=== PATIENT | male | born 1965 | race American Indian/Alaskan Native ===

== ENCOUNTER 2016-05-31 15:53 | Inpatient (IN) | payer MEDICARE, OTHER ==
--- NOTE | 2016-05-31 16:39 | ED PDOC ---
HPI: General Adult Time Seen by Provider: 05/31/16 16:35 Chief Complaint (Nursing): Lower Extremity Problem/Injury Chief Complaint (Provider): groin pain History Per: Patient History/Exam Limitations: no limitations Severity: Severe Additional Complaint(s): 50yo male w/ Hx diabetes, lymphedema, cellulitis comes in with complaining of sudden onset severe left groin pain. Pain at home was 7/10 but is now 10/10. No fever. Patient wears compression stockings. Patient also has left leg pain. PMD: Dr. Lukas Vallecillo Past Medical History Reviewed: Historical Data, Nursing Documentation, Vital Signs Vital Signs: Last Vital Signs Temp 99.1 F 06/05/16 07:47 Pulse 71 06/05/16 07:47 Resp 20 06/05/16 07:47 BP 125/79 06/05/16 07:47 Pulse Ox 97 06/05/16 07:47 - Medical History PMH: Diabetes, HTN, Peripheral Edema (Chornic bilateral lower extremity lymphedema L>R) Denies: Atrial Fibrillation, Cardia Arrhythmia, CHF, HIV, Hypercholesterolemia, Mitral Valve Prolapse, Chronic Kidney Disease - Surgical History Surgical History: Denies: Pacemaker - Family History Family History: States: Unknown Family Hx - Living Arrangements Living Arrangements: With Family - Social History Drugs: Denies - Immunization History Hx Tetanus Toxoid Vaccination: No Hx Influenza Vaccination: No Hx Pneumococcal Vaccination: No - Home Medications Home Medications: Ambulatory Orders Medication Instructions Recorded Meclizine HCl [Antivert] 50 mg PO Q8 PRN #30 tablet 04/04/15 Triamterene/Hydrochlorothiazid 1 cap PO DAILY 04/04/15 [Triamterene-Hctz 37.5-25 mg Cp] Acetaminophen [Tylenol 325mg tab] 650 mg PO Q4 PRN tab 06/05/16 Acetaminophen [Tylenol 325mg tab] 650 mg PO Q4 PRN tab 06/05/16 Ampicillin/Sulbactam 1.5gm [Unasyn 3 gm IVPB Q6 #1 bag 06/05/16 1 gm-0.5 gm] Atorvastatin [Lipitor] 10 mg PO DAILY tab 06/05/16 Enoxaparin [Lovenox] 40 mg SC DAILY syr 06/05/16 Ketorolac [Toradol] 15 mg IVP Q4 PRN vial 06/05/16 metFORMIN [glucOPHAGE] 500 mg PO BID tab 06/05/16 - Allergies Allergies/Adverse Reactions: Allergies Allergy/AdvReac Type Severity Reaction Status Date / Time No Known Drug Allergies Allergy Verified 06/01/16 02:03 morphine AdvReac NAUSEA Verified 06/01/16 01:51 Review of Systems ROS Statement: Except As Marked, All Systems Reviewed And Found Negative Constitutional: Negative for: Fever Genitourinary Male: Positive for: Other (groin pain) Musculoskeletal: Positive for: Leg Pain Physical Exam - Reviewed Nursing Documentation Reviewed: Yes Vital Signs Reviewed: Yes - Physical Exam Appears: Positive for: Non-toxic (+moderate painful distress) Head Exam: Positive for: ATRAUMATIC, NORMAL INSPECTION, NORMOCEPHALIC Eye Exam: Positive for: EOMI, PERRL Cardiovascular/Chest: Positive for: Regular Rate, Rhythm Respiratory: Positive for: Normal Breath Sounds. Negative for: Rales, Rhonchi, Wheezing Gastrointestinal/Abdominal: Positive for: Soft. Negative for: Tenderness Male Genital Exam: Positive for: normal genitalia, other (ED scribe Tarik Nuñez present as front desk assistant) Extremity: Positive for: Other (left lower extremity with edema, erythema, tenderness to palpation) Neurologic/Psych: Positive for: Alert, Oriented (x3) - Laboratory Results Result Diagrams: 06/04/16 07:45 06/04/16 07:45 - ECG O2 Sat by Pulse Oximetry: 100 (RA) Pulse Ox Interpretation: Normal Medical Decision Making Medical Decision Makin: VBG shock panel, labs, blood culture, albuterol, morphine ordered. 2000 labs reviewed were within normal limits. Lab results explained to patient and family. Patient states he is feeling better. [address] Vallecillo who requests patient be admitted to hospitalist. Old charts reviewed, patient previously admitted by family practice. Case discussed with family practice resident who refused admission. 1837 Case discussed with hospitalist who recommends placing patient under medicine induction coordination engineer. [address] Buckner who accepts patient for admission on med/surg. Podiatry paged. Disposition - Clinical Impression Clinical Impression: Cellulitis, Chronic acquired lymphedema - Patient ED Disposition Is Patient to be Admitted: Yes - Disposition Disposition Time: 20:42 Condition: FAIR - Pt Status Changed To: Hospital Disposition Of: Inpatient - Admit Certification Admit to Inpatient:: After my assessment, the patient will require hospitalization for at least two midnights. This is because of the severity of symptoms shown, intensity of services needed, and/or the medical risk in this patient being treated as an outpatient. - POA Present On Arrival: None Additional Comments - Additional Comments Additional Comments: Scribe Attestation: Documented by Tarik Nuñez acting as a scribe for Zulema Driscoll MD. Scribe Attestation: All medical record entries made by the Scribe were at my direction and personally dictated by me. I have reviewed the chart and agree that the record accurately reflects my personal performance of the history, physical exam, medical decision making, and the department course for this patient. I have also personally directed, reviewed, and agree with the discharge instructions and disposition.
[2016-05-31] MEDS ORDERED: Albuterol 0.083% Inhal Sol (2.5 mg/3 mL) UD INH STA (16:46)
[2016-05-31] MEDS ORDERED: Piperacillin/Tazobact 4.5 GM in Sodium Chloride 0.9% 100 ML IVPB ONE (17:30)
[2016-05-31] MEDS ORDERED: Albuterol 0.083% Inhal Sol (2.5 mg/3 mL) UD ONE (17:55)
[2016-05-31 18:25] LABS: BASO % 0.2 % (0.0-2.0); EOS % 0.1 % (0.0-4.0); HEMATOCRIT 43.6 % (35.0-51.0); LYMPH # 0.5 K/uL (1.0-4.3); LYMPH % 10.6 % (20.0-40.0); MEAN CORPUSCULAR HGB CONC 34.9 g/dL (33.0-37.0); MEAN PLATELET VOLUME 8.7 fl (7.2-11.7); MONO # 0.1 K/uL (0.0-0.8); MONO % 1.1 % (0.0-10.0); NEUT # 4.4 K/uL (1.8-7.0); NRBC % 0.2 % (0.0-0.0); RED CELL DISTRIBUTION WIDTH 13.4 % (11.5-14.5)
[2016-05-31 18:39] LABS: ALB/GLOB RATIO 1.1 (1.0-2.1); ALKALINE PHOSPHATASE 40 U/L (38-126); ALT/SGPT 25 U/L (21-72); AST/SGOT 34 U/L (17-59); BILIRUBIN,TOTAL 1.3 mg/dl (0.2-1.3); BLOOD UREA NITROGEN 18 mg/dl (9-20); CALCIUM 9.6 mg/dL (8.4-10.2); CARBON DIOXIDE 23 mmol/L (22-30); CHLORIDE 100 mmol/L (98-107); GFR AFRICAN-AMERICAN > 60; GLUCOSE,RANDOM 100 mg/dL (75-110); POTASSIUM 3.7 MMOL/L (3.6-5.0); SODIUM 139 mmol/l (132-148); TOTAL PROTEIN 7.7 G/DL (6.3-8.2)
[2016-05-31 18:52] LABS: VENOUS BLOOD GAS BASE EXCESS 5.9 mmol/L (0.0-2.0); VENOUS BLOOD GAS PCO2 23 mmHg (40-60); VENOUS BLOOD PH 7.65 (7.32-7.43)
[2016-05-31 19:10] LABS: PARTIAL THROMBOPLASTIN TIME 24.4 SECONDS (23.3-32.5)
--- NOTE | 2016-05-31 19:55 | US ---
EXAM: US Duplex Left Lower Extremity Veins CLINICAL HISTORY: 50 years old, male; Signs and symptoms; Swelling of limb; Lower extremity, left; Additional info: Redness, swelling TECHNIQUE: Real-time ultrasound scan of the veins of the left lower extremity with color Doppler flow, spectral waveform analysis and compression. EXAM DATE/TIME: 05/31/2016 5:04 PM COMPARISON: No relevant prior studies available. FINDINGS: Normal-appearing compressibility, flow and augmentation response are seen in the left common femoral, femoral and popliteal veins. Flow is seen in the posterior tibial veins, in the left calf. IMPRESSION: No evidence of deep venous thrombosis in the left leg.
[2016-06-01] MEDS: Enoxaparin 40 mg Syringe SC SCH (08:18)
[2016-06-01] MEDS: hydroCHLOROthiazide-Triamterene 25 mg-37.5 mg Cap UD PO SCH (08:18)
[2016-06-01] MEDS ORDERED: Pneumococcal 23-Valent Vaccine IM ONE (09:00)
[2016-06-01] MEDS ORDERED: Clindamycin 300 MG in Sodium Chloride 0.9% 100 ML IVPB SCH (09:00)
[2016-06-01] MEDS: Piperacillin/Tazobact 4.5 GM in Sodium Chloride 0.9% 100 ML IVPB SCH ×2 (10:19→16:02)
--- NOTE | 2016-06-01 10:38 | HP ---
ADMITTING HISTORY AND PHYSICAL HISTORY OF PRESENT ILLNESS: The patient is a 50-year-old male who was admitted via the [facility] because of sudden onset of pain in the left lower extremity with redness and warmth associated with fever and chills. He was brought to the Emergency Room, where he was admitted for severe cellulitis of the left lower extremity. He has a history of chronic lymphedema of both lower extremities - lef t worse than right, and has been admitted in the past with cellulitis of lower extremities. He also has a history of diabetes mellitus, severe peripheral vascular disease. FAMILY HISTORY: Noncontributory. SOCIAL HISTORY: He does not smoke or drink. REVIEW OF SYSTEMS: Remarkable for chronic swelling of lower extremities. PHYSICAL EXAMINATION: GENERAL: The patient is alert, oriented to ____ in moderate distress because of pain. VITAL SIGNS: Remarkable for blood pressure of 122/75, pulse of 93, respiratory rate 20. He is febri le with a temperature of 100 degrees Fahrenheit. SKIN: Shows fair turgor. HEENT: Pupils are equal and react to light and accommodation. Mouth shows fair hygiene. NECK: JVP flat. LUNGS: Clear. HEART: Regular. No murmurs or gallops. ABDOMEN: Soft, nontender. No organomegaly. GENITALIA: Normal. RECTAL: Normal. EXTREMITIES: Chronic bilateral lymphedema of lower extremities with severe cellulitis of left lower extremity, warmth, and tenderness. CENTRAL NERVOUS SYSTEM: Grossly intact. LABORATORY DATA: Remarkable for WBC of 5.0, hemoglobin 15.2, platelet count of 188,000. Sodium 139, potassium 3.7, BUN of 18, creatinine 1.0. Ultrasound of extremities is remarkable for no evidence of deep venous thrombosis of left leg. IMPRESSION: Severe cellulitis of left lower extremity with chronic lymphedema, sepsis secondary to c ellulitis and lymphedema of lower extremities, diabetes mellitus, hypertension by history. PLAN: Continue IV antibiotics, IV hydration. Infectious disease evaluation for appropriate antibiot ic therapy. Analgesics will be given for pain. Edu Buckner MD cc: 62 TT: 06/01/2016 10:37:29 jn
--- NOTE | 2016-06-01 11:17 | CP.PCM.CON ---
History of Present Illness - History of Present Illness History of Present Illness: 50yo male w/ Hx diabetes, lymphedema, cellulitis comes in with complaining of sudden onset severe left groin pain. Pain at home was 7/10 but is now 10/10. No fever. Patient wears compression stockings. Patient also has left leg pain. left foot is swollen warm and painful IV antibiotics in progress - Medical History PMH: Diabetes, HTN, Peripheral Edema (Chornic bilateral lower extremity lymphedema L>R) Denies: Atrial Fibrillation, Cardia Arrhythmia, CHF, HIV, Hypercholesterolemia, Mitral Valve Prolapse, Chronic Kidney Disease Review of Systems - Constitutional Constitutional: As Per HPI - EENT Eyes: absent: As Per HPI, Blind Spots, Blurred Vision, Change in Vision, Decreased Night Vision, Diplopia, Discharge, Dry Eye, Exophthalmos, Floaters, Irritation, Itchy Eyes, Loss of Peripheral Vision, Pain, Photophobia, Requires Corrective Lenses, Sees Flashes, Spots in Vision, Tunnel Vision, Other Visual Disturbances, Loss of Vision, Other Ears: absent: As Per HPI, Decreased Hearing, Ear Discharge, Ear Pain, Tinnitus, Abnormal Hearing, Disequilibrium, Dizziness, Other Nose/Mouth/Throat: absent: As Per HPI, Epistaxis, Nasal Congestion, Nasal Discharge, Nasal Obstruction, Nasal Trauma, Nose Pain, Post Nasal Drip, Sinus Pain, Sinus Pressure, Bleeding Gums, Change in Voice, Dental Pain, Dry Mouth, Dysphagia, Halitosis, Hoarsness, Lip Swelling, Mouth Lesions, Mouth Pain, Odynophagia, Sore Throat, Throat Swelling, Tongue Swelling, Facial Pain, Neck Pain, Neck Mass, Other - Cardiovascular Cardiovascular: absent: As Per HPI, Acrocyanosis, Chest Pain, Chest Pain at Rest , Chest Pain with Activity, Claudication, Diaphoresis, Dyspnea, Dyspnea on Exertion, Edema, Irregular Heart Rhythm, Pain Radiating to Arm/Neck/Jaw, Leg Edema, Leg Ulcers, Lightheadedness, Orthopnea, Palpitations, Paroxysmal Nocturnal Dyspnea, Pedal Edema, Radiating Pain, Rapid Heart Rate, Slow Heart Rate, Syncope, Other - Respiratory Respiratory: absent: As Per HPI, Cough, Dyspnea, Hemoptysis, Dyspnea on Exertion , Wheezing, Snoring, Stridor, Pain on Inspiration, Chest Congestion, Excessive Mucous Production, Change in Mucous Color, Pain with Coughing, Other - Gastrointestinal Gastrointestinal: absent: As Per HPI, Abdominal Pain, Belching, Bloating, Change in Bowel Habits, Change in Stool Character, Coffee Ground Emesis, Constipation, Cramping, Diarrhea, Dyspepsia, Dysphagia, Early Satiety, Excessive Flatus, Fecal Incontinence, Heartburn, Hematemesis, Hematochezia, Loose Stools, Melena, Nausea, Odynophagia, Temesmus, Vomiting, Other - Genitourinary Genitourinary: absent: As Per HPI, Change in Urinary Stream, Difficulty Urinating, Dysuria, Flank Pain, Hematuria, Pyuria, Nocturia, Urinary Incontinence, Urinary Frequency, Urinary Hesitance, Urinary Urgency, Voiding Freq/Small Amts, Freq UTI, Hx Renal/Bladder Calculi, Hx /Renal Surgery, Bladder Distension, Other - Musculoskeletal Musculoskeletal: As Per HPI - Integumentary Integumentary: As Per HPI - Neurological Neurological: As Per HPI - Psychiatric Psychiatric: absent: As Per HPI, Abnormal Sleep Pattern, Anhedonia, Anxiety, Auditory Hallucinations, Behavioral Changes, Change in Appetite, Change in Libido, Confusion, Depression, Difficulty Concentrating, Hallucinations, Homicidal Ideation, Hopelessness, Irritability, Memory Loss, Mood Swings, Panic Attacks, Paranoia, Suicidal Ideation, Visual Hallucinations, Tactile Hallucinations, Other - Endocrine Endocrine: absent: As Per HPI, Change in Body Appearance, Change in Libido, Cold Intolorance, Deepening of Voice, Excessive Sweating, Fatigue, Flushing, Heat Intolorance, Increase in Ring/Shoe/Hat Size, Palpitations, Polydipsia, Polyphagia, Polyuria, Other - Hematologic/Lymphatic Hematologic: absent: As Per HPI, Easy Bleeding, Easy Bruising, Lymphadenopathy, Other Past Patient History - Tetanus Immunizations Tetanus Immunization: Unknown - Past Medical History & Family History Past Medical History?: Yes - Past Social History Smoking Status: Never Smoked - CARDIAC Hx Cardiac Disorders: Yes - PULMONARY Hx Respiratory Disorders: No - NEUROLOGICAL Hx Neurological Disorder: No - HEENT Hx HEENT Problems: No - RENAL Hx Chronic Kidney Disease: No - ENDOCRINE/METABOLIC Hx Endocrine Disorders: Yes - HEMATOLOGICAL/ONCOLOGICAL Hx Blood Disorders: No - INTEGUMENTARY Hx Dermatological Problems: No - MUSCULOSKELETAL/RHEUMATOLOGICAL Hx Falls: No - GASTROINTESTINAL Hx Gastrointestinal Disorders: No - GENITOURINARY/GYNECOLOGICAL Hx Genitourinary Disorders: No - PSYCHIATRIC Hx Substance Use: No - SURGICAL HISTORY Hx Surgeries: No - ANESTHESIA Hx Anesthesia: No Hx Anesthesia Reactions: No Meds Allergies/Adverse Reactions: Allergies Allergy/AdvReac Type Severity Reaction Status Date / Time No Known Drug Allergies Allergy Verified 06/01/16 02:03 morphine AdvReac NAUSEA Verified 06/01/16 01:51 - Medications Medications: Current Medications Atorvastatin Calcium (Lipitor) 10 mg PO DAILY [facility] Last Admin: 06/01/16 08:19 Dose: 10 mg Enoxaparin Sodium (Lovenox) 40 mg SC DAILY [facility] PRN Reason: Protocol Last Admin: 06/01/16 08:18 Dose: 40 mg Piperacillin Sod/Tazobactam (Sod 4.5 gm/ Sodium Chloride) 100 mls @ 100 mls/hr IVPB Q8 [facility] Last Admin: 06/01/16 10:19 Dose: 100 mls/hr Clindamycin Phosphate 300 mg/ (Sodium Chloride) 102 mls @ 102 mls/hr IVPB Q12 [facility] Last Admin: 06/01/16 10:19 Dose: 102 mls/hr Ketorolac Tromethamine (Toradol) 15 mg IVP Q4 [facility] Last Admin: 06/01/16 10:20 Dose: Not Given Meclizine HCl (Antivert) 50 mg PO Q8 PRN PRN Reason: Other Metformin HCl (Glucophage) 500 mg PO BID [facility] Last Admin: 06/01/16 08:18 Dose: 500 mg Triamterene/HCTZ (Dyazide 25 Mg-37.5 Mg) 1 cap PO DAILY [facility] Last Admin: 06/01/16 08:18 Dose: 1 cap Physical Exam - Constitutional Appears: Non-toxic - Head Exam Head Exam: ATRAUMATIC, NORMAL INSPECTION, NORMOCEPHALIC - Eye Exam Eye Exam: EOMI, PERRL. absent: Scleral icterus - ENT Exam ENT Exam: Mucous Membranes Dry, Normal External Ear Exam - Neck Exam Neck exam: Negative for: Lymphadenopathy, Thyromegaly - Respiratory Exam Respiratory Exam: Decreased Breath Sounds, Clear to Auscultation Bilateral - Cardiovascular Exam Cardiovascular Exam: REGULAR RHYTHM, +S1, +S2 - GI/Abdominal Exam GI & Abdominal Exam: Diminished Bowel Sounds, Soft. absent: Tenderness - Rectal Exam Rectal Exam: Deferred - Exam Exam: NORMAL INSPECTION - Extremities Exam Extremities exam: Positive for: pedal edema, tenderness, pedal pulses present. Negative for: calf tenderness - Back Exam Back exam: absent: CVA tenderness (L), CVA tenderness (R), paraspinal tenderness - Neurological Exam Neurological exam: Alert, CN II-XII Intact, Oriented x3, Reflexes Normal - Psychiatric Exam Psychiatric exam: Normal Mood - Skin Skin Exam: Dry, Intact Results - Vital Signs Recent Vital Signs: Last Vital Signs Temp 100 F H 06/01/16 08:04 Pulse 93 H 06/01/16 08:04 Resp 20 06/01/16 08:04 BP 122/75 06/01/16 08:04 Pulse Ox 100 06/01/16 08:04 - Labs Result Diagrams: 05/31/16 18:10 05/31/16 18:10 Assessment & Plan (1) Cellulitis and abscess of foot Status: Acute (2) Cellulitis and abscess of foot Status: Acute (3) Chronic acquired lymphedema Status: Acute - Assessment and Plan (Free Text) Assessment: severe exac chronic lymphedema r/o abscess cellulitis r/o sepsis r/o OM consider MRI/ Bone scan and vasvcular studies cont IV antibiotics
[2016-06-01] MEDS: Clindamycin 600 MG in Sodium Chloride 0.9% 100 ML IVPB SCH (16:02)
[2016-06-02] MEDS: Clindamycin 600 MG in Sodium Chloride 0.9% 100 ML IVPB SCH ×3 (00:12→16:45)
[2016-06-02] MEDS: Piperacillin/Tazobact 4.5 GM in Sodium Chloride 0.9% 100 ML IVPB SCH ×3 (00:12→16:44)
[2016-06-02 06:50] LABS: BASO % 0.1 % (0.0-2.0); LYMPH # 0.6 K/uL (1.0-4.3); LYMPH % 4.6 % (20.0-40.0); MEAN CELL VOLUME 86.5 fl (80.0-94.0); MEAN CORPUSCULAR HEMOGLOBIN 29.7 pg (27.0-31.0); MEAN CORPUSCULAR HGB CONC 34.4 g/dL (33.0-37.0); MEAN PLATELET VOLUME 8.6 fl (7.2-11.7); MONO # 0.3 K/uL (0.0-0.8); MONO % 2.3 % (0.0-10.0); NEUT # 11.8 K/uL (1.8-7.0); PLATELET COUNT 137 K/uL (130-400); RED CELL DISTRIBUTION WIDTH 13.8 % (11.5-14.5); WHITE BLOOD COUNT 12.7 K/uL (4.8-10.8)
[2016-06-02] MEDS: hydroCHLOROthiazide-Triamterene 25 mg-37.5 mg Cap UD PO SCH (08:40)
[2016-06-02] MEDS: Enoxaparin 40 mg Syringe SC SCH (08:41)
--- NOTE | 2016-06-02 08:45 | CP.PCM.PN ---
Subjective - Date & Time of Evaluation Date of Evaluation: 06/02/16 Time of Evaluation: 08:46 - Subjective Subjective: L LEG PAIN LESS TODAY STILL FEBRILE Objective - Vital Signs/Intake and Output Vital Signs (last 24 hours): Temp Pulse Resp BP Pulse Ox 99.9 F H 99 H 20 111/77 96 06/02/16 07:32 06/02/16 07:32 06/02/16 07:32 06/02/16 07:32 06/02/16 07:32 - Medications Medications: Current Medications Acetaminophen (Tylenol 325mg Tab) 650 mg PO Q4 PRN PRN Reason: Fever >100.4 F Last Admin: 06/01/16 16:54 Dose: 650 mg Acetaminophen (Tylenol 325mg Tab) 650 mg PO Q4 PRN PRN Reason: Pain, Mild (1-3) Atorvastatin Calcium (Lipitor) 10 mg PO DAILY [facility] Last Admin: 06/02/16 08:40 Dose: 10 mg Enoxaparin Sodium (Lovenox) 40 mg SC DAILY [facility] PRN Reason: Protocol Last Admin: 06/02/16 08:41 Dose: 40 mg Piperacillin Sod/Tazobactam (Sod 4.5 gm/ Sodium Chloride) 100 mls @ 100 mls/hr IVPB Q8 [facility] Last Admin: 06/02/16 08:41 Dose: 100 mls/hr Clindamycin Phosphate 600 mg/ (Sodium Chloride) 104 mls @ 104 mls/hr IVPB Q8 [facility] Last Admin: 06/02/16 08:39 Dose: 104 mls/hr Ketorolac Tromethamine (Toradol) 15 mg IVP Q4 PRN PRN Reason: Pain, moderate (4-7) Meclizine HCl (Antivert) 50 mg PO Q8 PRN PRN Reason: Other Metformin HCl (Glucophage) 500 mg PO BID [facility] Last Admin: 06/02/16 08:40 Dose: 500 mg Triamterene/HCTZ (Dyazide 25 Mg-37.5 Mg) 1 cap PO DAILY [facility] Last Admin: 06/02/16 08:40 Dose: 1 cap - Labs Labs: 06/02/16 05:55 PT 10.4 SECONDS (9.6-11.2) 05/31/16 18:20 INR 1.00 (0.92-1.08) 05/31/16 18:20 APTT 24.4 SECONDS (23.3-32.5) 05/31/16 18:20 - Constitutional Appears: Chronically Ill - Head Exam Head Exam: ATRAUMATIC, NORMAL INSPECTION, NORMOCEPHALIC - Eye Exam Eye Exam: EOMI, Normal appearance, PERRL Pupil Exam: NORMAL ACCOMODATION, PERRL - ENT Exam ENT Exam: Mucous Membranes Moist, Normal Exam - Neck Exam Neck Exam: Full ROM, Normal Inspection. absent: Lymphadenopathy - Respiratory Exam Respiratory Exam: Clear to Ausculation Bilateral, NORMAL BREATHING PATTERN - Cardiovascular Exam Cardiovascular Exam: REGULAR RHYTHM, +S1, +S2. absent: Murmur - GI/Abdominal Exam GI & Abdominal Exam: Soft, Normal Bowel Sounds. absent: Tenderness - Rectal Exam Rectal Exam: NORMAL INSPECTION - Extremities Exam Extremities Exam: Full ROM, Normal Capillary Refill, Normal Inspection, Tenderness. absent: Joint Swelling, Pedal Edema Additional comments: BILATERAL LYMPHEDEMA OF LEGS WITH CELLULITIS OF L LEG - Back Exam Back Exam: NORMAL INSPECTION - Neurological Exam Neurological Exam: Alert, Awake, CN II-XII Intact, Normal Gait, Oriented x3 - Psychiatric Exam Psychiatric exam: Normal Affect, Normal Mood - Skin Skin Exam: Dry, Intact, Normal Color, Warm Assessment and Plan - Assessment and Plan (Free Text) Assessment: CELLULITIS OF L LEG LYMPHEDEMA OF LEGS STAPH SEPSIS DM Plan: CONTINUE IV ANTIBIOTIC RX
--- NOTE | 2016-06-02 12:29 | RAD ---
HISTORY: Fevers, + blood cultures COMPARISON: 01/23/2013 TECHNIQUE: Chest PA and lateral FINDINGS: LUNGS: No active pulmonary disease. PLEURA: No significant pleural effusion identified. No pneumothorax apparent. CARDIOVASCULAR: Normal. OSSEOUS STRUCTURES: No significant abnormalities. VISUALIZED UPPER ABDOMEN: Normal. OTHER FINDINGS: None. IMPRESSION: No active disease.
[2016-06-02 13:55] LABS: NEUTROPHIL 79 % (42-75); TOTAL CELLS COUNTED 100
--- NOTE | 2016-06-02 19:02 | CP.PCM.PN ---
Subjective - Date & Time of Evaluation Date of Evaluation: 06/02/16 Time of Evaluation: 09:00 - Subjective Subjective: fever persists leg swelling +++ consider CT or MRI left leg consider echo/[place] zyvox added Objective - Vital Signs/Intake and Output Vital Signs (last 24 hours): Temp Pulse Resp BP Pulse Ox 99.6 F 96 H 18 108/63 97 06/02/16 18:50 06/02/16 16:45 06/02/16 16:45 06/02/16 16:45 06/02/16 16:45 - Medications Medications: Current Medications Acetaminophen (Tylenol 325mg Tab) 650 mg PO Q4 PRN PRN Reason: Fever >100.4 F Last Admin: 06/02/16 16:44 Dose: 650 mg Acetaminophen (Tylenol 325mg Tab) 650 mg PO Q4 PRN PRN Reason: Pain, Mild (1-3) Atorvastatin Calcium (Lipitor) 10 mg PO DAILY [facility] Last Admin: 06/02/16 08:40 Dose: 10 mg Enoxaparin Sodium (Lovenox) 40 mg SC DAILY [facility] PRN Reason: Protocol Last Admin: 06/02/16 08:41 Dose: 40 mg Piperacillin Sod/Tazobactam (Sod 4.5 gm/ Sodium Chloride) 100 mls @ 100 mls/hr IVPB Q8 [facility] Last Admin: 06/02/16 16:44 Dose: 100 mls/hr Ketorolac Tromethamine (Toradol) 15 mg IVP Q4 PRN PRN Reason: Pain, moderate (4-7) Meclizine HCl (Antivert) 50 mg PO Q8 PRN PRN Reason: Other Metformin HCl (Glucophage) 500 mg PO BID [facility] Last Admin: 06/02/16 16:44 Dose: 500 mg Triamterene/HCTZ (Dyazide 25 Mg-37.5 Mg) 1 cap PO DAILY [facility] Last Admin: 06/02/16 08:40 Dose: 1 cap - Labs Labs: 06/02/16 05:55 PT 10.4 SECONDS (9.6-11.2) 05/31/16 18:20 INR 1.00 (0.92-1.08) 05/31/16 18:20 APTT 24.4 SECONDS (23.3-32.5) 05/31/16 18:20 - Constitutional Appears: Toxic - Eye Exam Eye Exam: absent: Scleral icterus - ENT Exam ENT Exam: Mucous Membranes Dry - Neck Exam Neck Exam: absent: Lymphadenopathy, Thyromegaly - Respiratory Exam Respiratory Exam: Decreased Breath Sounds, Clear to Ausculation Bilateral - Cardiovascular Exam Cardiovascular Exam: REGULAR RHYTHM, +S1, +S2 - GI/Abdominal Exam GI & Abdominal Exam: Distended, Soft. absent: Tenderness - Rectal Exam Rectal Exam: Deferred - Extremities Exam Extremities Exam: Calf Tenderness, Pedal Edema, Tenderness. absent: Normal Inspection - Back Exam Back Exam: absent: CVA tenderness (L), CVA tenderness (R) - Neurological Exam Neurological Exam: Alert, Awake, Oriented x3 Assessment and Plan (1) Cellulitis and abscess of foot Status: Acute (2) Cellulitis and abscess of foot Status: Acute (3) Chronic acquired lymphedema Status: Acute
[2016-06-02] MEDS: Linezolid 600 mg in D5W 300 ml 600 MG/300 ML BAG IVPB SCH (21:13)
[2016-06-03] MEDS: Piperacillin/Tazobact 4.5 GM in Sodium Chloride 0.9% 100 ML IVPB SCH ×3 (00:38→17:28)
[2016-06-03 07:47] LABS: BASO % 0.1 % (0.0-2.0); HEMATOCRIT 37.7 % (35.0-51.0); LYMPH # 0.7 K/uL (1.0-4.3); LYMPH % 4.6 % (20.0-40.0); MEAN CELL VOLUME 86.2 fl (80.0-94.0); MEAN CORPUSCULAR HEMOGLOBIN 29.7 pg (27.0-31.0); MEAN CORPUSCULAR HGB CONC 34.4 g/dL (33.0-37.0); MEAN PLATELET VOLUME 8.5 fl (7.2-11.7); MONO # 0.5 K/uL (0.0-0.8); MONO % 3.4 % (0.0-10.0); NEUT # 13.4 K/uL (1.8-7.0); NEUT % 91.9 % (50.0-75.0); PLATELET COUNT 146 K/uL (130-400); RED CELL DISTRIBUTION WIDTH 13.8 % (11.5-14.5); WHITE BLOOD COUNT 14.6 K/uL (4.8-10.8)
[2016-06-03 08:07] LABS: ALB/GLOB RATIO 0.9 (1.0-2.1); BILIRUBIN,TOTAL 1.7 mg/dl (0.2-1.3); CALCIUM 8.7 mg/dL (8.4-10.2); POTASSIUM 3.3 MMOL/L (3.6-5.0); TOTAL PROTEIN 6.9 G/DL (6.3-8.2)
--- NOTE | 2016-06-03 08:29 | CARD ---
APPROVED REPORT EKG Measurement Heart [id number] <Conclusion> Sinus rhythm with premature atrial complexes Otherwise normal ECG
[2016-06-03] MEDS: hydroCHLOROthiazide-Triamterene 25 mg-37.5 mg Cap UD PO SCH (09:15)
[2016-06-03] MEDS: Enoxaparin 40 mg Syringe SC SCH (09:15)
[2016-06-03] MEDS: Linezolid 600 mg in D5W 300 ml 600 MG/300 ML BAG IVPB SCH ×2 (09:16→21:28)
--- NOTE | 2016-06-03 09:21 | CP.PCM.PN ---
Subjective - Date & Time of Evaluation Date of Evaluation: 06/03/16 Time of Evaluation: 09:24 - Subjective Subjective: SWELLING OF L LEG IMPROVING STILL HAS PAIN IN L LEG Objective - Vital Signs/Intake and Output Vital Signs (last 24 hours): Temp Pulse Resp BP Pulse Ox 99.1 F 71 20 101/67 98 06/03/16 07:22 06/03/16 07:22 06/03/16 07:22 06/03/16 07:22 06/03/16 07:22 - Medications Medications: Current Medications Acetaminophen (Tylenol 325mg Tab) 650 mg PO Q4 PRN PRN Reason: Fever >100.4 F Last Admin: 06/02/16 16:44 Dose: 650 mg Acetaminophen (Tylenol 325mg Tab) 650 mg PO Q4 PRN PRN Reason: Pain, Mild (1-3) Atorvastatin Calcium (Lipitor) 10 mg PO DAILY [facility] Last Admin: 06/03/16 09:15 Dose: 10 mg Enoxaparin Sodium (Lovenox) 40 mg SC DAILY [facility] PRN Reason: Protocol Last Admin: 06/03/16 09:15 Dose: 40 mg Piperacillin Sod/Tazobactam (Sod 4.5 gm/ Sodium Chloride) 100 mls @ 100 mls/hr IVPB Q8 [facility] Last Admin: 06/03/16 09:16 Dose: 100 mls/hr Linezolid (Zyvox 600mg/300ml D5w) 600 mg in 300 mls @ 300 mls/hr IVPB Q12 [facility] Last Admin: 06/03/16 09:16 Dose: 300 mls/hr Ketorolac Tromethamine (Toradol) 15 mg IVP Q4 PRN PRN Reason: Pain, moderate (4-7) Meclizine HCl (Antivert) 50 mg PO Q8 PRN PRN Reason: Other Metformin HCl (Glucophage) 500 mg PO BID [facility] Last Admin: 06/03/16 09:15 Dose: 500 mg Triamterene/HCTZ (Dyazide 25 Mg-37.5 Mg) 1 cap PO DAILY [facility] Last Admin: 06/03/16 09:15 Dose: 1 cap - Labs Labs: 06/03/16 06:20 06/03/16 06:20 PT 10.4 SECONDS (9.6-11.2) 05/31/16 18:20 INR 1.00 (0.92-1.08) 05/31/16 18:20 APTT 24.4 SECONDS (23.3-32.5) 05/31/16 18:20 - Constitutional Appears: In Acute Distress - Head Exam Head Exam: ATRAUMATIC, NORMAL INSPECTION, NORMOCEPHALIC - Eye Exam Eye Exam: EOMI, Normal appearance, PERRL Pupil Exam: NORMAL ACCOMODATION, PERRL - ENT Exam ENT Exam: Mucous Membranes Moist, Normal Exam - Neck Exam Neck Exam: Full ROM, Normal Inspection. absent: Lymphadenopathy - Respiratory Exam Respiratory Exam: Clear to Ausculation Bilateral, NORMAL BREATHING PATTERN - Cardiovascular Exam Cardiovascular Exam: REGULAR RHYTHM, +S1, +S2. absent: Murmur - GI/Abdominal Exam GI & Abdominal Exam: Soft, Normal Bowel Sounds. absent: Tenderness - Rectal Exam Rectal Exam: NORMAL INSPECTION - Extremities Exam Extremities Exam: Full ROM, Normal Capillary Refill, Normal Inspection, Pedal Edema, Tenderness. absent: Joint Swelling Additional comments: CELLULITIS OF L LEG - Back Exam Back Exam: NORMAL INSPECTION - Neurological Exam Neurological Exam: Alert, Awake, CN II-XII Intact, Normal Gait, Oriented x3 - Psychiatric Exam Psychiatric exam: Normal Affect, Normal Mood - Skin Skin Exam: Dry, Intact, Normal Color, Warm Assessment and Plan - Assessment and Plan (Free Text) Assessment: SEPSIS CELLULITIS OF L LEG BILATERAL LYMPEDEDMA O9F LEGS DM HTN Plan: CONTINUE ANTIBIOTIC RX TRANSFER TO TCU
[2016-06-03 09:26] LABS: NEUTROPHIL 87 % (42-75); TOTAL CELLS COUNTED 100
[2016-06-03] MEDS: Sodium Chloride 0.45% 1,000 ML IV SCH (10:30)
[2016-06-03] MEDS ORDERED: Potassium Chloride 20 mEq ER Tab PO ONE (10:34)
--- NOTE | 2016-06-03 14:50 | CARD ---
APPROVED REPORT EXAM: Two-dimensional and M-mode echocardiogram with Doppler and color Doppler. Other Information Quality : GoodRhythm : NSR INDICATION Sepsis,Fever 2D DIMENSIONS IVSd1.07 (0.7-1.1cm)LVDd4.86 (3.9-5.9cm) LVOT Diameter2.87 (1.8-2.4cm)PWd0.86 (0.7-1.1cm) IVSs1.55 (0.8-1.2cm)LVDs3.06 (2.5-4.0cm) FS (%) 37.0 %PWs1.74 (0.8-1.2cm) M-Mode DIMENSIONS Left Atrium (MM)4.53 (2.5-4.0cm)IVSd1.12 (0.7-1.1cm) Aortic Root3.35 (2.2-3.7cm)LVDd6.15 (4.0-5.6cm) Aortic Cusp Exc.2.24 (1.5-2.0cm)PWd1.09 (0.7-1.1cm) IVSs1.79 cmFS (%) 38 % LVDs3.79 (2.0-3.8cm)PWs1.38 cm Mitral Valve MV E Vtivwkob84.4cm/sMV DECEL [id number] A Pqrrjwkt29.3cm/s MV KDC39xyR/A ratio0.8MVA (PHT)3.30cm2 TDI Lateral E' Peak V13.20cm/sMedial E' Peak V9.45cm/sE/Lateral E'3.7 E/Medial E'5.2 Pulmonary Valve PV Peak Lnwcgjnb775.7cm/s Tricuspid Valve TR Peak Amjeclny814cn/sRAP MXRGXKDM22biBzUU Peak Gr.22mmHg KHXF95jcLw LEFT VENTRICLE The left ventricle is normal size. There is normal left ventricular wall thickness. Left ventricle systolic function is normal. The Ejection Fraction is 60-65%. There is normal LV segmental wall motion. Transmitral Doppler flow pattern is Grade I-abnormal relaxation pattern. RIGHT VENTRICLE The right ventricle is normal size. There is normal right ventricular wall thickness. The right ventricular systolic function is normal. ATRIA The left atrium size is normal. The right atrium size is normal. AORTIC VALVE The aortic valve is normal in structure and function. No aortic regurgitation is present. There is no aortic valvular stenosis. MITRAL VALVE The mitral valve is normal in structure. There is no evidence of mitral valve prolapse. There is no mitral valve stenosis. Mitral regurgitation is mild. TRICUSPID VALVE The tricuspid valve is normal in structure. There is trace to mild tricuspid regurgitation. Right ventricular systolic pressure is estimated at 33 mmHg. There is mild pulmonary hypertension. PULMONIC VALVE The pulmonary valve is normal in structure and function. There is no pulmonic valvular regurgitation. GREAT VESSELS The aortic root is normal in size. The IVC is dilated. The IVC collapses <50% with inspiration. PERICARDIAL EFFUSION The pericardium appears normal. <Conclusion> The left ventricle is normal size. There is normal left ventricular wall thickness. There is normal LV segmental wall motion. Left ventricle systolic function is normal. The Ejection Fraction is 60-65%. Transmitral Doppler flow pattern is Grade I-abnormal relaxation pattern. The IVC is dilated. The IVC collapses <50% with inspiration. No vegetations seen on this TTE.
--- NOTE | 2016-06-03 19:08 | CP.PCM.PN ---
Subjective - Date & Time of Evaluation Date of Evaluation: 06/03/16 Time of Evaluation: 10:00 - Subjective Subjective: BLOOD C/S + STREP GRP B IWILL NEED MIN 14 DAYS IV RX Objective - Vital Signs/Intake and Output Vital Signs (last 24 hours): Temp Pulse Resp BP Pulse Ox 98.8 F 91 H 20 130/81 99 06/03/16 15:46 06/03/16 15:46 06/03/16 15:46 06/03/16 15:46 06/03/16 15:46 - Medications Medications: Current Medications Acetaminophen (Tylenol 325mg Tab) 650 mg PO Q4 PRN PRN Reason: Fever >100.4 F Last Admin: 06/02/16 16:44 Dose: 650 mg Acetaminophen (Tylenol 325mg Tab) 650 mg PO Q4 PRN PRN Reason: Pain, Mild (1-3) Atorvastatin Calcium (Lipitor) 10 mg PO DAILY [facility] Last Admin: 06/03/16 09:15 Dose: 10 mg Enoxaparin Sodium (Lovenox) 40 mg SC DAILY [facility] PRN Reason: Protocol Last Admin: 06/03/16 09:15 Dose: 40 mg Piperacillin Sod/Tazobactam (Sod 4.5 gm/ Sodium Chloride) 100 mls @ 100 mls/hr IVPB Q8 [facility] Last Admin: 06/03/16 17:28 Dose: 100 mls/hr Linezolid (Zyvox 600mg/300ml D5w) 600 mg in 300 mls @ 300 mls/hr IVPB Q12 [facility] Last Admin: 06/03/16 09:16 Dose: 300 mls/hr Sodium Chloride (Sodium Chloride 0.45%) 1,000 mls @ 75 mls/hr IV .[id number] [facility] Stop: 06/04/16 10:38 Last Admin: 06/03/16 10:30 Dose: 75 mls/hr Ketorolac Tromethamine (Toradol) 15 mg IVP Q4 PRN PRN Reason: Pain, moderate (4-7) Meclizine HCl (Antivert) 50 mg PO Q8 PRN PRN Reason: Other Metformin HCl (Glucophage) 500 mg PO BID [facility] Last Admin: 06/03/16 17:25 Dose: 500 mg Triamterene/HCTZ (Dyazide 25 Mg-37.5 Mg) 1 cap PO DAILY [facility] Last Admin: 06/03/16 09:15 Dose: 1 cap - Labs Labs: 06/03/16 06:20 06/03/16 06:20 PT 10.4 SECONDS (9.6-11.2) 05/31/16 18:20 INR 1.00 (0.92-1.08) 05/31/16 18:20 APTT 24.4 SECONDS (23.3-32.5) 05/31/16 18:20 Assessment and Plan (1) Cellulitis and abscess of foot Status: Acute (2) Cellulitis and abscess of foot Status: Acute (3) Chronic acquired lymphedema Status: Acute
--- NOTE | 2016-06-03 19:28 | CP.PCM.CON ---
History of Present Illness - History of Present Illness History of Present Illness: chart reviewed, pt is MRI 1. gpc sepsis 2. HALLE 3. cellulitis of legs c/w ivf check urine lytes, osm, cr, bmp in am c/w iv abx, zosyn and zyvox Past Patient History - Tetanus Immunizations Tetanus Immunization: Unknown - Past Medical History & Family History Past Medical History?: Yes - Past Social History Smoking Status: Never Smoked - CARDIAC Hx Cardiac Disorders: Yes - PULMONARY Hx Respiratory Disorders: No - NEUROLOGICAL Hx Neurological Disorder: No - HEENT Hx HEENT Problems: No - RENAL Hx Chronic Kidney Disease: No - ENDOCRINE/METABOLIC Hx Endocrine Disorders: Yes - HEMATOLOGICAL/ONCOLOGICAL Hx Blood Disorders: No - INTEGUMENTARY Hx Dermatological Problems: No - MUSCULOSKELETAL/RHEUMATOLOGICAL Hx Falls: No - GASTROINTESTINAL Hx Gastrointestinal Disorders: No - GENITOURINARY/GYNECOLOGICAL Hx Genitourinary Disorders: No - PSYCHIATRIC Hx Substance Use: No - SURGICAL HISTORY Hx Surgeries: No - ANESTHESIA Hx Anesthesia: No Hx Anesthesia Reactions: No Meds Allergies/Adverse Reactions: Allergies Allergy/AdvReac Type Severity Reaction Status Date / Time No Known Drug Allergies Allergy Verified 06/01/16 02:03 morphine AdvReac NAUSEA Verified 06/01/16 01:51 - Medications Medications: Current Medications Acetaminophen (Tylenol 325mg Tab) 650 mg PO Q4 PRN PRN Reason: Fever >100.4 F Last Admin: 06/02/16 16:44 Dose: 650 mg Acetaminophen (Tylenol 325mg Tab) 650 mg PO Q4 PRN PRN Reason: Pain, Mild (1-3) Atorvastatin Calcium (Lipitor) 10 mg PO DAILY [facility] Last Admin: 06/03/16 09:15 Dose: 10 mg Enoxaparin Sodium (Lovenox) 40 mg SC DAILY [facility] PRN Reason: Protocol Last Admin: 06/03/16 09:15 Dose: 40 mg Piperacillin Sod/Tazobactam (Sod 4.5 gm/ Sodium Chloride) 100 mls @ 100 mls/hr IVPB Q8 [facility] Last Admin: 06/03/16 17:28 Dose: 100 mls/hr Linezolid (Zyvox 600mg/300ml D5w) 600 mg in 300 mls @ 300 mls/hr IVPB Q12 [facility] Last Admin: 06/03/16 09:16 Dose: 300 mls/hr Sodium Chloride (Sodium Chloride 0.45%) 1,000 mls @ 75 mls/hr IV .[id number] [facility] Stop: 06/04/16 10:38 Last Admin: 06/03/16 10:30 Dose: 75 mls/hr Ketorolac Tromethamine (Toradol) 15 mg IVP Q4 PRN PRN Reason: Pain, moderate (4-7) Meclizine HCl (Antivert) 50 mg PO Q8 PRN PRN Reason: Other Metformin HCl (Glucophage) 500 mg PO BID [facility] Last Admin: 06/03/16 17:25 Dose: 500 mg Triamterene/HCTZ (Dyazide 25 Mg-37.5 Mg) 1 cap PO DAILY [facility] Last Admin: 06/03/16 09:15 Dose: 1 cap Results - Vital Signs Recent Vital Signs: Last Vital Signs Temp 98.8 F 06/03/16 15:46 Pulse 91 H 06/03/16 15:46 Resp 20 06/03/16 15:46 BP 130/81 06/03/16 15:46 Pulse Ox 99 06/03/16 15:46 - Labs Result Diagrams: 06/03/16 06:20 06/03/16 06:20 Labs: Laboratory Results - last 24 hr 06/02/16 06/02/16 06/02/16 20:20 20:20 20:52 WBC RBC Hgb Hct MCV MCH MCHC RDW Plt Count MPV Neut % (Auto) Lymph % (Auto) [place] % (Auto) Eos % (Auto) Baso % (Auto) Neut # Lymph # [place] # Eos # Baso # Neutrophils % (Manual) Band Neutrophils % Lymphocytes % (Manual) Monocytes % (Manual) Toxic Granulation Platelet Estimate Sodium Potassium Chloride Carbon Dioxide Anion Gap BUN Creatinine Est GFR ( Amer) Est GFR (Non-Af Amer) POC Glucose (mg/dL) Random Glucose Calcium Total Bilirubin AST ALT Alkaline Phosphatase Total Creatine Kinase 67 Total Protein Albumin Globulin Albumin/Globulin Ratio Procalcitonin 54.07 H HIV 1&2 Antibody Screen Negative 06/02/16 06/03/16 06/03/16 21:14 06:17 06:20 WBC 14.6 H RBC 4.37 L Hgb 13.0 Hct 37.7 MCV 86.2 MCH 29.7 MCHC 34.4 RDW 13.8 Plt Count 146 MPV 8.5 Neut % (Auto) 91.9 H Lymph % (Auto) 4.6 L [place] % (Auto) 3.4 Eos % (Auto) 0.0 Baso % (Auto) 0.1 Neut # 13.4 H Lymph # 0.7 L [place] # 0.5 Eos # 0.0 Baso # 0.0 Neutrophils % (Manual) 87 H Band Neutrophils % 2 Lymphocytes % (Manual) 8 L Monocytes % (Manual) 3 Toxic Granulation Present Platelet Estimate Normal Sodium Potassium Chloride Carbon Dioxide Anion Gap BUN Creatinine Est GFR ( Amer) Est GFR (Non-Af Amer) POC Glucose (mg/dL) 116 H 115 H Random Glucose Calcium Total Bilirubin AST ALT Alkaline Phosphatase Total Creatine Kinase Total Protein Albumin Globulin Albumin/Globulin Ratio Procalcitonin HIV 1&2 Antibody Screen 06/03/16 06/03/16 06:20 15:47 WBC RBC Hgb Hct MCV MCH MCHC RDW Plt Count MPV Neut % (Auto) Lymph % (Auto) [place] % (Auto) Eos % (Auto) Baso % (Auto) Neut # Lymph # [place] # Eos # Baso # Neutrophils % (Manual) Band Neutrophils % Lymphocytes % (Manual) Monocytes % (Manual) Toxic Granulation Platelet Estimate Sodium 134 Potassium 3.3 L Chloride 95 L Carbon Dioxide 25 Anion Gap 17 BUN 26 H Creatinine 2.0 H Est GFR ( Amer) 43 Est GFR (Non-Af Amer) 36 POC Glucose (mg/dL) 121 H Random Glucose 123 H Calcium 8.7 Total Bilirubin 1.7 H AST 27 ALT 26 Alkaline Phosphatase 70 Total Creatine Kinase Total Protein 6.9 Albumin 3.3 L Globulin 3.6 Albumin/Globulin Ratio 0.9 L Procalcitonin HIV 1&2 Antibody Screen
[2016-06-04] MEDS: Sodium Chloride 0.45% 1,000 ML IV SCH ×2 (00:42→16:41)
[2016-06-04] MEDS: Piperacillin/Tazobact 4.5 GM in Sodium Chloride 0.9% 100 ML IVPB SCH ×2 (00:44→09:08)
[2016-06-04 08:08] LABS: BASO % 0.2 % (0.0-2.0); EOS % 0.3 % (0.0-4.0); HEMATOCRIT 35.8 % (35.0-51.0); LYMPH # 1.1 K/uL (1.0-4.3); LYMPH % 8.4 % (20.0-40.0); MEAN CELL VOLUME 87.3 fl (80.0-94.0); MEAN CORPUSCULAR HEMOGLOBIN 29.4 pg (27.0-31.0); MEAN CORPUSCULAR HGB CONC 33.7 g/dL (33.0-37.0); MEAN PLATELET VOLUME 8.4 fl (7.2-11.7); MONO # 0.8 K/uL (0.0-0.8); MONO % 6.2 % (0.0-10.0); NEUT % 84.9 % (50.0-75.0); NRBC % 0.1 % (0.0-0.0); PLATELET COUNT 171 K/uL (130-400); RED CELL DISTRIBUTION WIDTH 13.7 % (11.5-14.5)
[2016-06-04 08:28] LABS: ALB/GLOB RATIO 0.9 (1.0-2.1); CALCIUM 8.6 mg/dL (8.4-10.2); POTASSIUM 3.4 MMOL/L (3.6-5.0); TOTAL PROTEIN 6.8 G/DL (6.3-8.2)
[2016-06-04] MEDS: hydroCHLOROthiazide-Triamterene 25 mg-37.5 mg Cap UD PO SCH (09:09)
--- NOTE | 2016-06-04 09:24 | CP.PCM.CON ---
History of Present Illness - History of Present Illness History of Present Illness: pt seen and examined, full consult is dictated #[id number] Past Patient History - Tetanus Immunizations Tetanus Immunization: Unknown - Past Medical History & Family History Past Medical History?: Yes - Past Social History Smoking Status: Never Smoked - CARDIAC Hx Cardiac Disorders: Yes - PULMONARY Hx Respiratory Disorders: No - NEUROLOGICAL Hx Neurological Disorder: No - HEENT Hx HEENT Problems: No - RENAL Hx Chronic Kidney Disease: No - ENDOCRINE/METABOLIC Hx Endocrine Disorders: Yes - HEMATOLOGICAL/ONCOLOGICAL Hx Blood Disorders: No - INTEGUMENTARY Hx Dermatological Problems: No - MUSCULOSKELETAL/RHEUMATOLOGICAL Hx Falls: No - GASTROINTESTINAL Hx Gastrointestinal Disorders: No - GENITOURINARY/GYNECOLOGICAL Hx Genitourinary Disorders: No - PSYCHIATRIC Hx Substance Use: No - SURGICAL HISTORY Hx Surgeries: No - ANESTHESIA Hx Anesthesia: No Hx Anesthesia Reactions: No Meds Allergies/Adverse Reactions: Allergies Allergy/AdvReac Type Severity Reaction Status Date / Time No Known Drug Allergies Allergy Verified 06/01/16 02:03 morphine AdvReac NAUSEA Verified 06/01/16 01:51 - Medications Medications: Current Medications Acetaminophen (Tylenol 325mg Tab) 650 mg PO Q4 PRN PRN Reason: Fever >100.4 F Last Admin: 06/02/16 16:44 Dose: 650 mg Acetaminophen (Tylenol 325mg Tab) 650 mg PO Q4 PRN PRN Reason: Pain, Mild (1-3) Last Admin: 06/03/16 20:59 Dose: 650 mg Atorvastatin Calcium (Lipitor) 10 mg PO DAILY [facility] Last Admin: 06/04/16 09:09 Dose: 10 mg Enoxaparin Sodium (Lovenox) 40 mg SC DAILY [facility] PRN Reason: Protocol Last Admin: 06/03/16 09:15 Dose: 40 mg Piperacillin Sod/Tazobactam (Sod 4.5 gm/ Sodium Chloride) 100 mls @ 100 mls/hr IVPB Q8 [facility] Last Admin: 06/04/16 09:08 Dose: 100 mls/hr Linezolid (Zyvox 600mg/300ml D5w) 600 mg in 300 mls @ 300 mls/hr IVPB Q12 [facility] Last Admin: 06/03/16 21:28 Dose: 300 mls/hr Sodium Chloride (Sodium Chloride 0.45%) 1,000 mls @ 75 mls/hr IV .[id number] [facility] Stop: 06/04/16 10:38 Last Admin: 06/04/16 00:42 Dose: Not Given Ketorolac Tromethamine (Toradol) 15 mg IVP Q4 PRN PRN Reason: Pain, moderate (4-7) Meclizine HCl (Antivert) 50 mg PO Q8 PRN PRN Reason: Other Metformin HCl (Glucophage) 500 mg PO BID [facility] Last Admin: 06/04/16 09:09 Dose: 500 mg Triamterene/HCTZ (Dyazide 25 Mg-37.5 Mg) 1 cap PO DAILY [facility] Last Admin: 06/04/16 09:09 Dose: 1 cap Results - Vital Signs Recent Vital Signs: Last Vital Signs Temp 99.1 F 06/04/16 08:05 Pulse 94 H 06/04/16 08:05 Resp 20 06/04/16 08:05 BP 113/71 06/04/16 08:05 Pulse Ox 100 06/04/16 08:05 - Labs Result Diagrams: 06/04/16 07:45 06/04/16 07:45 Labs: Laboratory Results - last 24 hr 06/02/16 06/02/16 06/03/16 20:20 20:20 06:20 WBC RBC Hgb Hct MCV MCH MCHC RDW Plt Count MPV Neut % (Auto) Lymph % (Auto) [place] % (Auto) Eos % (Auto) Baso % (Auto) Neut # Lymph # [place] # Eos # Baso # Neutrophils % (Manual) 87 H Band Neutrophils % 2 Lymphocytes % (Manual) 8 L Monocytes % (Manual) 3 Toxic Granulation Present Platelet Estimate Normal Sodium Potassium Chloride Carbon Dioxide Anion Gap BUN Creatinine Est GFR ( Amer) Est GFR (Non-Af Amer) POC Glucose (mg/dL) Random Glucose Calcium Total Bilirubin AST ALT Alkaline Phosphatase Total Protein Albumin Globulin Albumin/Globulin Ratio Procalcitonin 54.07 H Urine Osmolality Ur Random Creatinine Ur Random Sodium Ur Random Potassium HIV 1&2 Antibody Screen Negative 06/03/16 06/03/16 06/03/16 11:06 15:47 21:46 WBC RBC Hgb Hct MCV MCH MCHC RDW Plt Count MPV Neut % (Auto) Lymph % (Auto) [place] % (Auto) Eos % (Auto) Baso % (Auto) Neut # Lymph # [place] # Eos # Baso # Neutrophils % (Manual) Band Neutrophils % Lymphocytes % (Manual) Monocytes % (Manual) Toxic Granulation Platelet Estimate Sodium Potassium Chloride Carbon Dioxide Anion Gap BUN Creatinine Est GFR ( Amer) Est GFR (Non-Af Amer) POC Glucose (mg/dL) 152 H 121 H 130 H Random Glucose Calcium Total Bilirubin AST ALT Alkaline Phosphatase Total Protein Albumin Globulin Albumin/Globulin Ratio Procalcitonin Urine Osmolality Ur Random Creatinine Ur Random Sodium Ur Random Potassium HIV 1&2 Antibody Screen 06/04/16 06/04/16 06/04/16 06:01 07:45 07:45 WBC 13.0 H RBC 4.10 L Hgb 12.0 Hct 35.8 MCV 87.3 MCH 29.4 MCHC 33.7 RDW 13.7 Plt Count 171 MPV 8.4 Neut % (Auto) 84.9 H Lymph % (Auto) 8.4 L [place] % (Auto) 6.2 Eos % (Auto) 0.3 Baso % (Auto) 0.2 Neut # 11.0 H Lymph # 1.1 [place] # 0.8 Eos # 0.0 Baso # 0.0 Neutrophils % (Manual) Band Neutrophils % Lymphocytes % (Manual) Monocytes % (Manual) Toxic Granulation Platelet Estimate Sodium 131 L Potassium 3.4 L Chloride 94 L Carbon Dioxide 28 Anion Gap 12 BUN 20 Creatinine 1.5 Est GFR ( Amer) 60 Est GFR (Non-Af Amer) 50 POC Glucose (mg/dL) 118 H Random Glucose 117 H Calcium 8.6 Total Bilirubin 1.0 AST 24 ALT 27 Alkaline Phosphatase 95 Total Protein 6.8 Albumin 3.1 L Globulin 3.6 Albumin/Globulin Ratio 0.9 L Procalcitonin Urine Osmolality Ur Random Creatinine Ur Random Sodium Ur Random Potassium HIV 1&2 Antibody Screen 06/04/16 06/04/16 08:30 08:30 WBC RBC Hgb Hct MCV MCH MCHC RDW Plt Count MPV Neut % (Auto) Lymph % (Auto) [place] % (Auto) Eos % (Auto) Baso % (Auto) Neut # Lymph # [place] # Eos # Baso # Neutrophils % (Manual) Band Neutrophils % Lymphocytes % (Manual) Monocytes % (Manual) Toxic Granulation Platelet Estimate Sodium Potassium Chloride Carbon Dioxide Anion Gap BUN Creatinine Est GFR ( Amer) Est GFR (Non-Af Amer) POC Glucose (mg/dL) Random Glucose Calcium Total Bilirubin AST ALT Alkaline Phosphatase Total Protein Albumin Globulin Albumin/Globulin Ratio Procalcitonin Urine Osmolality 592 Ur Random Creatinine 100.1 Ur Random Sodium 147 Ur Random Potassium 24.7 HIV 1&2 Antibody Screen
[2016-06-04] MEDS ORDERED: Potassium Chloride 20 mEq ER Tab PO ONE (10:05)
[2016-06-04] MEDS: Linezolid 600 mg in D5W 300 ml 600 MG/300 ML BAG IVPB SCH (10:34)
--- NOTE | 2016-06-04 10:48 | CON ---
DATE: 06/04/2016 The patient is located in room 661, bed 1. REQUESTING PHYSICIAN: Dr. Edu Buckner REASON FOR RENAL CONSULTATION: Acute renal failure, for further evaluation. The patient is a 50-year-old, middle-aged, -[place]in[place] male, very pleasant , with a past medical history significant for diabetes for about 3-4 years and lymphedema for more than 30 years, bilateral lower extremity cellulitis on and off, who was admitted with chief complaints of swelling and pain in the left groin and swelling of the left leg. The patient was found to have positive blood cultures after admission and the patient was initially on IV antibiotics. The patient is feeling better this morning. The patient was started on IV fluids yesterday after my discussion with the nurse practitioner , Dawn. The patient is not in acute distress. Denies any headache, dizziness. Denies any chest pain, palpitations. Denies any fever, cough at this time. However, patient was having low-grade temperature prior to the admission, as per the patient for a few days. PAST MEDICAL HISTORY: Significant for diabetes for 3-4 years and lymphedema for 30 years and cellulitis on and off in the past. PAST SURGICAL HISTORY: Denies any surgeries. ALLERGIES: NO KNOWN DRUG ALLERGIES EXCEPT MORPHINE ASSOCIATED WITH VOMITING. SOCIAL HISTORY: No smoking, no alcohol, no drugs. FAMILY HISTORY: Not significant. PERSONAL HISTORY: He is and he has 2 children, 1 stays with him. CURRENT MEDICATIONS: Include as follows, meclizine 50 mg p.o. q. 8 hours and Dyazide/triamterene with hydrochlorothiazide 25 and 37.5 mg 1 capsule daily, metformin, Glucophage 500 mg p.o. b.i.d. and atorvastatin, Lipitor 10 mg p.o. daily and Lovenox 40 mg subQ daily, Zosyn 4.5 grams q. 8 hours and IV fluids half normal saline at 75 mL per hour and Toradol 50 mg IV q. 4 hours p.r.n. and Tylenol 650 mg q. 4 hours p.r.n. and Zyvox 600 mg q. 12 hours. REVIEW OF SYSTEMS: Significant for bilateral leg swelling, left more than the right, and left groin pain and fever. All others reviewed and are negative. PHYSICAL EXAMINATION: VITAL SIGNS: Blood pressure 113/71, pulse 94, respirations 20, temperature 99.1 , saturation 100%, height 6 feet 2 inches and weight is 240 pounds. GENERAL: The patient is a 50-year-old male, well-built, well-nourished, not in distress. HEENT: Pupils normal, reactive to light and accommodation. Conjunctivae pink. Sclerae anicteric. Tongue is moist. NECK: Trachea is midline. LUNGS: Symmetric on both sides. Bilateral breath sounds present. Clear on auscultation. CARDIOVASCULAR: [place] at the fifth intercostal space, half inch middle to midclavicular line. S1 and S2 audible. No murmur or gallop. ABDOMEN: Normal in appearance, soft, tympanic. No guarding, no rigidity. No hepatosplenomegaly. CENTRAL NERVOUS SYSTEM: The patient is alert, awake, oriented x 3, nonfocal on examination. EXTREMITIES: Bilateral leg swelling present, left more than the right, and also slight groin tenderness with slight enlargement of the inguinal lymph nodes on both sides, but tender on the left side. LABORATORY DATA: Include as follows: As of 06/04/2016, WBCs 13, hemoglobin 12, hematocrit is 35.8, platelets 171. Sodium 131, potassium 3.4, chloride 94, CO2 28, BUN 20, creatinine 1.5, glucose 117, calcium is 8.6, and total bilirubin 1.0 , AST 24, ALT 27, alkaline phosphatase 95 and total protein 6.8, albumin is 3.1. Urine osmolality 592, urine creatinine is 100.1, urine sodium is 147, urine potassium is 24.7 as of 06/04/2016. His other laboratory data as of 2016, sodium 134, potassium 3.3, CO2 29, BUN 26 and creatinine 2.0 and glucose 123, calcium 8.7, total bilirubin 1.7. C-reactive protein is more than 15 and procalcitonin 83.16. As of 05/31/2016, sodium 139, potassium 3.7, chloride 100, CO2 23, BUN 18, creatinine 1.0. OTHER REPORTS: Blood cultures positive for beta-hemolytic Streptococcus group B and urine culture is negative. SUMMARY: The patient is a 50-year-old male with a history of diabetes for 3-4 years, lymphedema for 30 years, who was admitted with feverish and increased WBC count and bilateral leg swelling, left more than the right, with groin pain , positive blood culture for the group B beta-hemolytic Streptococcus 2/2 bottles, on IV antibiotics with increased BUN and creatinine. 1. Nonoliguric acute renal failure, most likely secondary to acute tubular necrosis, secondary to sepsis. 2. Bilateral lymphedema. 3. Cellulitis of the leg, left. 4. Type 2 diabetes. 5. Group B-hemolyticus strep sepsis PLAN: Continue IV antibiotics with Zosyn and Zyvox. Continue IV fluids half normal saline at 75 mL per hour. The renal function is improving. The creatinine went down from 2 to 1.5 today. Continue his current management. Case discussed with the nurse practitioner . Thank you for allowing me to participate in your patient's care. Ingrid Tamayo MD cc: [id number] TT: 06/04/2016 10:47:45 Confirmation # [id number] Dictation # [id number] en [id number]
[2016-06-04 10:49] LABS: NEUTROPHIL 81 % (42-75); TOTAL CELLS COUNTED 100
[2016-06-04 10:51] LABS: LARGE PLATELETS PRESENT
--- NOTE | 2016-06-04 13:08 | MRI ---
MRI left tibia and fibula History: Cellulitis. Lymphedema. Comparison: None available. Technique: Multi-echo multiplanar sequences were performed through the left tibia and fibula without the use of intravenous contrast. Findings: Prominent reticulation and edema seen within the circumferential subcutaneous soft tissues of the left tibia and fibula suggestive for a severe cellulitis and or lymphedema. Confluent reticulation, fluid, and edema seen adjacent to the medial head of the gastrocnemius muscle which may represent developing phlegmonous change. Additional confluent fluid and edema and traversing along the anteromedial and anterior lateral soft tissues which may also represent developing phlegmonous changes. Remainder of the visualized musculature appears preserved. Focal patchy signal abnormality seen within the proximal medullary cavity of the proximal tibia best seen on series 4, image 9 measuring up to 4 centimeters. This is of uncertain clinical etiology and may represent some focal hematopoietic marrow reconversion. Additional etiologies such as an early developing acute infectious and or inflammatory process cannot entirely be excluded. Correlation with plain x-ray is recommended. Impression: 1. Prominent reticulation and edema seen within the circumferential subcutaneous soft tissues of the left tibia and fibula suggestive for a severe cellulitis and or lymphedema. 2. Confluent reticulation, fluid, and edema seen adjacent to the medial head of the gastrocnemius muscle which may represent developing phlegmonous change. Additional confluent fluid and edema and traversing along the anteromedial and anterior lateral soft tissues which may also represent developing phlegmonous changes. 3. Focal patchy signal abnormality seen within the proximal medullary cavity of the proximal tibia best seen on series 4, image 9 measuring up to 4 centimeters. This is of uncertain clinical etiology and may represent some focal hematopoietic marrow reconversion. Additional etiologies such as an early developing acute infectious and or inflammatory process cannot entirely be excluded. Correlation with plain x-ray is recommended.
--- NOTE | 2016-06-04 13:28 | MRI ---
MRI right tibia and fibula History: Lymphedema. Cellulitis. Comparison: None available. Technique: Multi-echo multiplanar sequences were performed through the right tibia and fibula without the use of intravenous contrast. Findings: Mild reticulation and edema seen within the circumferential subcutaneous soft tissues of the right tibia and fibula suggestive for a mild cellulitis. Fluid and edema seen within the anteromedial subcutaneous soft tissues at the level of the distal tibia measuring 4.2 x 1.0 centimeters which may represent developing phlegmonous change. No significant change within the visualized osseous structures to suggest an acute osteomyelitis; however, evaluation of the most proximal tibia and fibula is limited given failure of fat suppression at these levels. Mild reactive edema seen within the medial and lateral heads of the gastrocnemius muscle which may represent a mild myositis. Impression: 1. Mild reticulation and edema seen within the circumferential subcutaneous soft tissues of the right tibia and fibula suggestive for a mild cellulitis. 2. Fluid and edema seen within the anteromedial subcutaneous soft tissues at the level of the distal tibia measuring 4.2 x 1.0 centimeters which may represent developing phlegmonous change. 3. No significant change within the visualized osseous structures to suggest an acute osteomyelitis; however, evaluation of the most proximal tibia and fibula is limited given failure of fat suppression at these levels. 4. Mild reactive edema seen within the medial and lateral heads of the gastrocnemius muscle which may represent a mild myositis.
--- NOTE | 2016-06-04 13:49 | CP.PCM.PN ---
Subjective - Date & Time of Evaluation Date of Evaluation: 06/04/16 Time of Evaluation: 13:49 - Subjective Subjective: LIGHTHEADED TODAY AFEBRILE PAIN AND SWELLING OF LEGS PERSIST Objective - Vital Signs/Intake and Output Vital Signs (last 24 hours): Temp Pulse Resp BP Pulse Ox 99.1 F 63 19 103/66 96 06/04/16 08:05 06/04/16 11:46 06/04/16 11:46 06/04/16 11:46 06/04/16 11:46 - Medications Medications: Current Medications Acetaminophen (Tylenol 325mg Tab) 650 mg PO Q4 PRN PRN Reason: Fever >100.4 F Last Admin: 06/02/16 16:44 Dose: 650 mg Acetaminophen (Tylenol 325mg Tab) 650 mg PO Q4 PRN PRN Reason: Pain, Mild (1-3) Last Admin: 06/03/16 20:59 Dose: 650 mg Atorvastatin Calcium (Lipitor) 10 mg PO DAILY [facility] Last Admin: 06/04/16 09:09 Dose: 10 mg Enoxaparin Sodium (Lovenox) 40 mg SC DAILY [facility] PRN Reason: Protocol Last Admin: 06/03/16 09:15 Dose: 40 mg Piperacillin Sod/Tazobactam (Sod 4.5 gm/ Sodium Chloride) 100 mls @ 100 mls/hr IVPB Q8 [facility] Last Admin: 06/04/16 09:08 Dose: 100 mls/hr Linezolid (Zyvox 600mg/300ml D5w) 600 mg in 300 mls @ 300 mls/hr IVPB Q12 [facility] Last Admin: 06/04/16 10:34 Dose: 300 mls/hr Ketorolac Tromethamine (Toradol) 15 mg IVP Q4 PRN PRN Reason: Pain, moderate (4-7) Meclizine HCl (Antivert) 50 mg PO Q8 PRN PRN Reason: Other Metformin HCl (Glucophage) 500 mg PO BID [facility] Last Admin: 06/04/16 09:09 Dose: 500 mg Triamterene/HCTZ (Dyazide 25 Mg-37.5 Mg) 1 cap PO DAILY [facility] Last Admin: 06/04/16 09:09 Dose: 1 cap - Labs Labs: 06/04/16 07:45 06/04/16 07:45 PT 10.4 SECONDS (9.6-11.2) 05/31/16 18:20 INR 1.00 (0.92-1.08) 05/31/16 18:20 APTT 24.4 SECONDS (23.3-32.5) 05/31/16 18:20 - Constitutional Appears: In Acute Distress - Head Exam Head Exam: ATRAUMATIC, NORMAL INSPECTION, NORMOCEPHALIC - Eye Exam Eye Exam: EOMI, Normal appearance, PERRL Pupil Exam: NORMAL ACCOMODATION, PERRL - ENT Exam ENT Exam: Mucous Membranes Moist, Normal Exam - Neck Exam Neck Exam: Full ROM, Normal Inspection. absent: Lymphadenopathy - Respiratory Exam Respiratory Exam: Clear to Ausculation Bilateral, NORMAL BREATHING PATTERN - Cardiovascular Exam Cardiovascular Exam: REGULAR RHYTHM, +S1, +S2. absent: Murmur - GI/Abdominal Exam GI & Abdominal Exam: Soft, Normal Bowel Sounds. absent: Tenderness - Rectal Exam Rectal Exam: NORMAL INSPECTION - Extremities Exam Extremities Exam: Full ROM, Normal Capillary Refill, Normal Inspection, Pedal Edema. absent: Joint Swelling - Back Exam Back Exam: NORMAL INSPECTION - Neurological Exam Neurological Exam: Alert, Awake, CN II-XII Intact, Normal Gait, Oriented x3 - Psychiatric Exam Psychiatric exam: Normal Affect, Normal Mood - Skin Skin Exam: Dry, Intact, Normal Color, Warm Assessment and Plan - Assessment and Plan (Free Text) Assessment: CELLULITIS OF LEG SEPSIS LYMPHEDEMA OF LEGS DM Plan: TRANSFER TO TCU IN AM CONTINUE ANTIBIOTIC RX
--- NOTE | 2016-06-04 14:00 | CP.PCM.PN ---
Subjective - Date & Time of Evaluation Date of Evaluation: 06/04/16 Time of Evaluation: 09:00 - Subjective Subjective: events noted Positive blood c/s Objective - Vital Signs/Intake and Output Vital Signs (last 24 hours): Temp Pulse Resp BP Pulse Ox 99.1 F 63 19 103/66 96 06/04/16 08:05 06/04/16 11:46 06/04/16 11:46 06/04/16 11:46 06/04/16 11:46 - Medications Medications: Current Medications Acetaminophen (Tylenol 325mg Tab) 650 mg PO Q4 PRN PRN Reason: Fever >100.4 F Last Admin: 06/02/16 16:44 Dose: 650 mg Acetaminophen (Tylenol 325mg Tab) 650 mg PO Q4 PRN PRN Reason: Pain, Mild (1-3) Last Admin: 06/03/16 20:59 Dose: 650 mg Atorvastatin Calcium (Lipitor) 10 mg PO DAILY [facility] Last Admin: 06/04/16 09:09 Dose: 10 mg Enoxaparin Sodium (Lovenox) 40 mg SC DAILY [facility] PRN Reason: Protocol Last Admin: 06/03/16 09:15 Dose: 40 mg Piperacillin Sod/Tazobactam (Sod 4.5 gm/ Sodium Chloride) 100 mls @ 100 mls/hr IVPB Q8 [facility] Last Admin: 06/04/16 09:08 Dose: 100 mls/hr Linezolid (Zyvox 600mg/300ml D5w) 600 mg in 300 mls @ 300 mls/hr IVPB Q12 [facility] Last Admin: 06/04/16 10:34 Dose: 300 mls/hr Ketorolac Tromethamine (Toradol) 15 mg IVP Q4 PRN PRN Reason: Pain, moderate (4-7) Meclizine HCl (Antivert) 50 mg PO Q8 PRN PRN Reason: Other Metformin HCl (Glucophage) 500 mg PO BID [facility] Last Admin: 06/04/16 09:09 Dose: 500 mg Triamterene/HCTZ (Dyazide 25 Mg-37.5 Mg) 1 cap PO DAILY [facility] Last Admin: 06/04/16 09:09 Dose: 1 cap - Labs Labs: 06/04/16 07:45 06/04/16 07:45 PT 10.4 SECONDS (9.6-11.2) 05/31/16 18:20 INR 1.00 (0.92-1.08) 05/31/16 18:20 APTT 24.4 SECONDS (23.3-32.5) 05/31/16 18:20 - Constitutional Appears: Non-toxic, Chronically Ill - Head Exam Head Exam: NORMOCEPHALIC - Eye Exam Eye Exam: PERRL. absent: Scleral icterus - ENT Exam ENT Exam: Mucous Membranes Dry - Neck Exam Neck Exam: absent: Lymphadenopathy - Respiratory Exam Respiratory Exam: Decreased Breath Sounds, Clear to Ausculation Bilateral - Cardiovascular Exam Cardiovascular Exam: REGULAR RHYTHM - GI/Abdominal Exam GI & Abdominal Exam: Distended, Soft Assessment and Plan (1) Cellulitis and abscess of foot Status: Acute (2) Cellulitis and abscess of foot Status: Acute (3) Chronic acquired lymphedema Status: Acute
[2016-06-04] MEDS: Ampicillin/Sulbactam 3 GM in Sodium Chloride 0.9% 100 ML IVPB SCH ×2 (16:41→22:04)
[2016-06-05] MEDS: Ampicillin/Sulbactam 3 GM in Sodium Chloride 0.9% 100 ML IVPB SCH ×3 (03:33→15:50)
[2016-06-05] MEDS: Sodium Chloride 0.45% 1,000 ML IV SCH (05:50)
[2016-06-05] MEDS: Enoxaparin 40 mg Syringe SC SCH (09:07)
[2016-06-05] MEDS: hydroCHLOROthiazide-Triamterene 25 mg-37.5 mg Cap UD PO SCH (09:07)
--- NOTE | 2016-06-05 11:13 | CP.PCM.DIS ---
Provider - Provider Date of Admission: 05/31/16 20:43 Attending physician: Edu Buckner MD Primary care physician: Herbert Vallecillo MD Time Spent in preparation of Discharge (in minutes): 30 Diagnosis - Discharge Diagnosis (1) Cellulitis and abscess of foot Status: Acute (2) Chronic acquired lymphedema Status: Acute (3) Diabetes 1.5, managed as type 2 Status: Acute (4) Hypertension Status: Acute (5) Sepsis Status: Acute Hospital Course - Lab Results Lab Results: Micro Results 06/02/16 18:19 Urine,Clean Catch Urine Culture - Final No Growth (<1,000 CFU/ML) Most Recent Lab Values WBC 13.0 K/uL (4.8-10.8) H 06/04/16 07:45 RBC 4.10 Mil/uL (4.40-5.90) L 06/04/16 07:45 Hgb 12.0 g/dL (12.0-18.0) 06/04/16 07:45 Hct 35.8 % (35.0-51.0) 06/04/16 07:45 MCV 87.3 fl (80.0-94.0) 06/04/16 07:45 MCH 29.4 pg (27.0-31.0) 06/04/16 07:45 MCHC 33.7 g/dL (33.0-37.0) 06/04/16 07:45 RDW 13.7 % (11.5-14.5) 06/04/16 07:45 Plt Count 171 K/uL (130-400) 06/04/16 07:45 MPV 8.4 fl (7.2-11.7) 06/04/16 07:45 Neut % (Auto) 84.9 % (50.0-75.0) H 06/04/16 07:45 Lymph % (Auto) 8.4 % (20.0-40.0) L 06/04/16 07:45 Blair % (Auto) 6.2 % (0.0-10.0) 06/04/16 07:45 Eos % (Auto) 0.3 % (0.0-4.0) 06/04/16 07:45 Baso % (Auto) 0.2 % (0.0-2.0) 06/04/16 07:45 Neut # 11.0 K/uL (1.8-7.0) H 06/04/16 07:45 Lymph # 1.1 K/uL (1.0-4.3) 06/04/16 07:45 Blair # 0.8 K/uL (0.0-0.8) 06/04/16 07:45 Eos # 0.0 K/uL (0.0-0.7) 06/04/16 07:45 Baso # 0.0 K/uL (0.0-0.2) 06/04/16 07:45 Neutrophils % (Manual) 81 % (42-75) H 06/04/16 07:45 Band Neutrophils % 3 % (0-2) H 06/04/16 07:45 Lymphocytes % (Manual) 12 % (20-50) L 06/04/16 07:45 Monocytes % (Manual) 4 % (0-10) 06/04/16 07:45 Toxic Granulation Present 06/03/16 06:20 Platelet Estimate Normal (NORMAL) 06/04/16 07:45 Large Platelets Present 06/04/16 07:45 RBC Morphology Normal (NORMAL) 06/02/16 05:55 Poikilocytosis (manual Slight 06/04/16 07:45 Anisocytosis (manual) Slight 06/04/16 07:45 Ovalocytes Slight 06/04/16 07:45 ESR 18 mm/hr (0-15) H 06/01/16 11:44 PT 10.4 SECONDS (9.6-11.2) 05/31/16 18:20 INR 1.00 (0.92-1.08) 05/31/16 18:20 APTT 24.4 SECONDS (23.3-32.5) 05/31/16 18:20 pO2 53 mm/Hg (30-55) 05/31/16 18:47 VBG pH 7.65 (7.32-7.43) H 05/31/16 18:47 VBG pCO2 23 mmHg (40-60) L 05/31/16 18:47 VBG HCO3 29.4 mmol/L 05/31/16 18:47 VBG Total CO2 26.0 mmol/L (22-28) 05/31/16 18:47 VBG O2 Sat (Calc) 95.1 % (40-65) H 05/31/16 18:47 VBG Base Excess 5.9 mmol/L (0.0-2.0) H 05/31/16 18:47 Sodium > 200.0 mmol/L (132-148) H* 05/31/16 18:47 Chloride 118.0 mmol/L (98-107) H 05/31/16 18:47 Glucose 92 mg/dL (75-110) 05/31/16 18:47 Lactate 3.2 mmol/L (0.7-2.1) H 05/31/16 18:47 FiO2 21.0 % 05/31/16 18:47 Crit Value Called To James loza 05/31/16 18:47 Crit Value Called By Ms 05/31/16 18:47 Crit Value Read Back Y 05/31/16 18:47 Blood Gas Notified Time 1850 05/31/16 18:47 Sodium 131 mmol/l (132-148) L 06/04/16 07:45 Potassium 3.4 MMOL/L (3.6-5.0) L 06/04/16 07:45 Chloride 94 mmol/L (98-107) L 06/04/16 07:45 Carbon Dioxide 28 mmol/L (22-30) 06/04/16 07:45 Anion Gap 12 (10-20) 06/04/16 07:45 BUN 20 mg/dl (9-20) 06/04/16 07:45 Creatinine 1.5 mg/dL (0.8-1.5) 06/04/16 07:45 Est GFR ( Amer) 60 06/04/16 07:45 Est GFR (Non-Af Amer) 50 06/04/16 07:45 POC Glucose (mg/dL) 143 mg/dL (65-110) H 06/05/16 10:58 Random Glucose 117 mg/dL (75-110) H 06/04/16 07:45 Hemoglobin A1c 6.1 % (4.2-6.5) 06/02/16 09:33 Calcium 8.6 mg/dL (8.4-10.2) 06/04/16 07:45 Total Bilirubin 1.0 mg/dl (0.2-1.3) 06/04/16 07:45 AST 24 U/L (17-59) 06/04/16 07:45 ALT 27 U/L (21-72) 06/04/16 07:45 Alkaline Phosphatase 95 U/L (38-126) 06/04/16 07:45 Total Creatine Kinase 67 U/L (55-170) 06/02/16 20:52 C-React Prot High Sens > 15.00 mg/L (1.00-3.00) H 06/01/16 12:37 Total Protein 6.8 G/DL (6.3-8.2) 06/04/16 07:45 Albumin 3.1 g/dL (3.5-5.0) L 06/04/16 07:45 Globulin 3.6 gm/dL (2.2-3.9) 06/04/16 07:45 Albumin/Globulin Ratio 0.9 (1.0-2.1) L 06/04/16 07:45 Procalcitonin 54.07 NG/ML (0.19-0.49) H 06/02/16 20:20 Urine Osmolality 592 mosm/kg (300-1000) 06/04/16 08:30 Ur Random Creatinine 100.1 mg/dL 06/04/16 08:30 Ur Random Sodium 147 meq/L 06/04/16 08:30 Ur Random Potassium 24.7 mmol/L 06/04/16 08:30 HIV 1&2 Antibody Screen Negative (NEGATIVE) 06/02/16 20:20 Discharge Exam - Head Exam Head Exam: NORMOCEPHALIC - Eye Exam Eye Exam: EOMI, Normal appearance, PERRL Pupil Exam: NORMAL ACCOMODATION, PERRL - GI/Abdominal Exam GI & Abdominal Exam: Normal Bowel Sounds - Rectal Exam Rectal Exam: NORMAL INSPECTION - Extremities Exam Extremities exam: pedal edema - Neurological Exam Neurological exam: Alert, CN II-XII Intact, Normal Gait, Oriented x3, Reflexes Normal - Psychiatric Exam Psychiatric exam: Normal Affect, Normal Mood - Skin Skin Exam: Dry, Intact, Normal Color, Warm Discharge Plan - Follow Up Plan Condition: FAIR Disposition: HOME/ ROUTINE Patient education suggested?: Yes Additional Instructions: TRANSFER TO TRANSITIONAL CARE FOR IV ANTIBIOTIC RX Referrals: Herbert Vallecillo MD [Primary Care Provider] -
--- NOTE | 2016-06-05 12:05 | CP.PCM.PN ---
Subjective - Date & Time of Evaluation Date of Evaluation: 06/05/16 Time of Evaluation: 12:04 - Subjective Subjective: pt seen and examined, follow up consult is dictated #[id number] check bmp Objective - Vital Signs/Intake and Output Vital Signs (last 24 hours): Temp Pulse Resp BP Pulse Ox 99.1 F 71 20 125/79 97 06/05/16 07:47 06/05/16 07:47 06/05/16 07:47 06/05/16 07:47 06/05/16 07:47 - Medications Medications: Current Medications Acetaminophen (Tylenol 325mg Tab) 650 mg PO Q4 PRN PRN Reason: Fever >100.4 F Last Admin: 06/02/16 16:44 Dose: 650 mg Acetaminophen (Tylenol 325mg Tab) 650 mg PO Q4 PRN PRN Reason: Pain, Mild (1-3) Last Admin: 06/03/16 20:59 Dose: 650 mg Atorvastatin Calcium (Lipitor) 10 mg PO DAILY [facility] Last Admin: 06/05/16 09:07 Dose: 10 mg Enoxaparin Sodium (Lovenox) 40 mg SC DAILY [facility] PRN Reason: Protocol Last Admin: 06/05/16 09:07 Dose: 40 mg Ampicillin Sodium/Sulbactam (Sodium 3 gm/ Sodium Chloride) 100 mls @ 100 mls/ hr IVPB Q6 [facility] Last Admin: 06/05/16 09:08 Dose: 100 mls/hr Sodium Chloride (Sodium Chloride 0.45%) 1,000 mls @ 75 mls/hr IV .[id number] [facility] Stop: 06/05/16 15:58 Last Admin: 06/05/16 05:50 Dose: Not Given Ketorolac Tromethamine (Toradol) 15 mg IVP Q4 PRN PRN Reason: Pain, moderate (4-7) Meclizine HCl (Antivert) 50 mg PO Q8 PRN PRN Reason: Other Metformin HCl (Glucophage) 500 mg PO BID [facility] Last Admin: 06/05/16 09:07 Dose: 500 mg Triamterene/HCTZ (Dyazide 25 Mg-37.5 Mg) 1 cap PO DAILY [facility] Last Admin: 06/05/16 09:07 Dose: 1 cap - Labs Labs: 06/04/16 07:45 06/04/16 07:45 PT 10.4 SECONDS (9.6-11.2) 05/31/16 18:20 INR 1.00 (0.92-1.08) 05/31/16 18:20 APTT 24.4 SECONDS (23.3-32.5) 05/31/16 18:20
[2016-06-05 12:21] LABS: BLOOD UREA NITROGEN 17 mg/dl (9-20); CALCIUM 9.3 mg/dL (8.4-10.2); CARBON DIOXIDE 28 mmol/L (22-30); CHLORIDE 94 mmol/L (98-107); GFR AFRICAN-AMERICAN > 60; GLUCOSE,RANDOM 122 mg/dL (75-110); POTASSIUM 3.3 MMOL/L (3.6-5.0); SODIUM 131 mmol/l (132-148)
--- NOTE | 2016-06-05 12:29 | PN ---
DATE: 06/05/2016 LOCATION: The patient is located in room 661, bed 1. HISTORY OF PRESENT ILLNESS: The patient is a 50-year-old -[place] male with a past medical history significant for diabetes for 3-4 years and lymphedema of the legs for 30 years, who was admitted with left groin pain and swelling of the leg. Patient was found to have positive blood culture, group B beta hemolytic Streptococcus and started on IV antibiotic. Renal consult was requested for increased BUN and creatinine. The patient is feeling much better with IV hydration and serum creatinine slowly improving and also on IV antibiotic. Denies any complaints. No chest pain, no palpitations, no fever, no cough, no abdominal pain, no nausea, vomiting, diarrhea. PHYSICAL EXAMINATION: VITAL SIGNS: As follows: Blood pressure 125/79, pulse 71, respirations 20, temperature 99.1, saturation 97%, height 6 feet 2 inches and weight is 240 pounds. GENERAL: The patient is a 50-year-old middle-aged male, moderately built, moderately nourished, not in any distress. HEENT: Pupils normal, reactive to light and accommodation. Conjunctivae pink. Sclerae anicteric. Tongue is moist. NECK: Trachea is midline. LUNGS: Symmetric on both sides. Bilateral breath sounds present. Clear on auscultation. CARDIOVASCULAR: [place] at the fifth intercostal space half inch middle to midclavicular line. S1 and S2 audible. No murmur or gallop. ABDOMEN: Normal in appearance, soft, tympanic. No guarding, no rigidity. No hepatosplenomegaly. CENTRAL NERVOUS SYSTEM: The patient is alert, awake, oriented x 3, nonfocal on examination. EXTREMITIES: No cyanosis, no clubbing. Bilateral lower extremity swelling present, left more than the right. CURRENT MEDICATIONS: Include as follows: Unasyn 3 grams q. 6 hours, Aricept, meclizine 50 mg p.o. q. 8 hours p.r.n. and Dyazide combination of triamterene and hydrochlorothiazide 25 and 37.5 mg p.o. daily, Glucophage 5 mg p.o. b.i.d., Lipitor 10 mg at bedtime, Lovenox 40 mg subQ daily, IV fluids half normal saline at 75 mL per hour and Tylenol 650 mg q. 4 hours p.r.n. 650 mg, and Zosyn was discontinued and Zyvox was discontinued. LABORATORY DATA: Include as follows: As of 06/05/2016, glucose 101 and 143, and as of 05/27/2016, urine osmolality 592. Urine creatinine is 100.1. Urine sodium is 147. Urine potassium 24.7 and blood culture is positive for group B beta hemolytic Streptococcus and the urine culture is negative. Blood cultures are sensitive to ampicillin and penicillin and vancomycin. His creatinine as of 06/04/2016 BUN/creatinine 21/1.5. SUMMARY: The patient is a 50-year-old middle-aged obese -[place] male with a history of hyperlipidemia and diabetes, lymphedema, was admitted with bilateral leg swelling and pain in the left groin and swelling is much worse than previously with increased BUN and creatinine. 1. Nonoliguric acute renal failure, most likely secondary to decreased p.o. intake and diuretics. 2. Group B beta hemolytic Streptococcus sepsis. 3. Cellulitis of the leg. 4. Type 2 diabetes. 5. Hyperlipidemia, under control. Continue his antibiotics on Unasyn 3 grams q. 6 hours as per ID, and renal function is improving with gentle hydration. Repeat BMP today and we will follow with you. Thank you for allowing me to participate in your patient's care. Case discussed with Dr. Buckner in rounds. Ingrid Tamayo MD cc: [id number] TT: 06/05/2016 12:28:59 Confirmation # [id number] Dictation # [id number] VADIM
[2016-06-05 16:39] VITALS: BP 111/72; PULSE 63; RESP 18; TEMP 98.7; O2SAT 97
== END 2016-06-05 17:15 | DRG 871 ==
LOC: H.ER 15:53 → H.ERHOLD 20:43 → H.MEDSURG1 06-01 00:46
PROVIDERS: ADMIT Internal Medicine Pulmonary Disease; ATTEND Internal Medicine Pulmonary Disease
DX: A41.2 Sepsis due to unspecified staphylococcus (principal); N17.0 Acute kidney failure with tubular necrosis; L03.116 Cellulitis of left lower limb; L02.612 Cutaneous abscess of left foot; E11.51 Type 2 diabetes mellitus with diabetic peripheral angiopathy without gangrene; I10 Essential (primary) hypertension; I89.0 Lymphedema, not elsewhere classified; A40.9 Streptococcal sepsis, unspecified; R65.20 Severe sepsis without septic shock

== ENCOUNTER 2016-06-05 14:38 | Inpatient (IN) | payer MEDICARE, OTHER ==
[2016-06-05 17:35] VITALS: BMI 30.9
[2016-06-05] MEDS ORDERED: Potassium Chloride 20 mEq ER Tab PO ONE (20:00)
[2016-06-05] MEDS: Ampicillin/Sulbactam 3 GM in Sodium Chloride 0.9% 100 ML IVPB SCH (21:25)
[2016-06-05] MEDS ORDERED: Ampicillin/Sulbactam 1.5 gm Inj IVPB SCH (22:00)
[2016-06-06] MEDS: Ampicillin/Sulbactam 3 GM in Sodium Chloride 0.9% 100 ML IVPB SCH ×4 (04:24→21:11)
[2016-06-06 08:23] LABS: BASO % 0.7 % (0.0-2.0); EOS # 0.1 K/uL (0.0-0.7); EOS % 0.8 % (0.0-4.0); HEMATOCRIT 39.9 % (35.0-51.0); LYMPH % 32.7 % (20.0-40.0); MEAN CORPUSCULAR HEMOGLOBIN 29.8 pg (27.0-31.0); MEAN CORPUSCULAR HGB CONC 34.3 g/dL (33.0-37.0); MEAN PLATELET VOLUME 7.6 fl (7.2-11.7); MONO # 0.6 K/uL (0.0-0.8); MONO % 10.4 % (0.0-10.0); NEUT # 3.4 K/uL (1.8-7.0); NEUT % 55.4 % (50.0-75.0); NRBC % 0.2 % (0.0-0.0); RED CELL DISTRIBUTION WIDTH 13.7 % (11.5-14.5); WHITE BLOOD COUNT 6.2 K/uL (4.8-10.8)
[2016-06-06 08:47] LABS: ALB/GLOB RATIO 0.9 (1.0-2.1); ALKALINE PHOSPHATASE 123 U/L (38-126); ALT/SGPT 44 U/L (21-72); AST/SGOT 44 U/L (17-59); BILIRUBIN,TOTAL 0.6 mg/dl (0.2-1.3); BLOOD UREA NITROGEN 17 mg/dl (9-20); CALCIUM 9.3 mg/dL (8.4-10.2); CARBON DIOXIDE 29 mmol/L (22-30); CHLORIDE 95 mmol/L (98-107); GFR AFRICAN-AMERICAN > 60; GLUCOSE,RANDOM 123 mg/dL (75-110); POTASSIUM 3.5 MMOL/L (3.6-5.0); SODIUM 133 mmol/l (132-148); TOTAL PROTEIN 7.9 G/DL (6.3-8.2)
[2016-06-06] MEDS: hydroCHLOROthiazide-Triamterene 25 mg-37.5 mg Cap UD PO SCH (08:56)
[2016-06-06] MEDS: Enoxaparin 40 mg Syringe SC SCH (08:56)
--- NOTE | 2016-06-06 17:23 | HP ---
The patient is a 50-year-old male who was transferred from the medical floor to the transitional care unit after he was admitted for cellulitis of the left lower extremity with sepsis. He has a history of chronic lymphedema of both lower extremities for years and has had recurrent infections. He st[place] es trauma to the lower extremity. PAST MEDICAL HISTORY: Remarkable for diabetes mellitus, hypertension and chronic lymphedema of legs. FAMILY HISTORY: Noncontributory. SOCIAL HISTORY: He does not smoke or drink and is presently on disability, lives at home with a . REVIEW OF SYSTEMS: Essentially remarkable for swelling and tenderness of lower extremities. PHYSICAL EXAMINATION: GENERAL: The patient is alert and oriented, well built, well nourished. VITAL SIGNS: Blood pressure 124/67, pulse of 61, respiratory rate 20. He is afebrile, but temperatu re maximum was 101 degrees Fahrenheit on admission. HEENT: Pupils equal, react to light and accommodation. Mouth shows fair hygiene. NECK: JVP flat. LUNGS: Clear. HEART: Regular. No murmurs or gallops. ABDOMEN: Soft, nontender, no organomegaly. EXTREMITIES: Chronic lymphedema of both lower extremities with redness and warmth of left lower extr emity with tenderness. RECTAL AND GENITALIA: Deferred. CENTRAL NERVOUS SYSTEM: Grossly intact. LABORATORY DATA: Pending. IMPRESSION: Sepsis, cellulitis of lower extremities, chronic lymphedema of lower extremities, diabet es mellitus, hypertension. PLAN: Continue IV antibiotic therapy. Infectious disease evaluation. Nephrology evaluation for acu te kidney injury, probably secondary to dehydration. Edu Buckner MD cc: [id number] TT: 06/06/2016 17:22:32 ricardo
[2016-06-07] MEDS: Ampicillin/Sulbactam 3 GM in Sodium Chloride 0.9% 100 ML IVPB SCH ×4 (04:23→22:10)
--- NOTE | 2016-06-07 08:15 | CP.PCM.PN ---
Subjective - Date & Time of Evaluation Date of Evaluation: 06/07/16 Time of Evaluation: 08:15 - Subjective Subjective: CELLULITIS AND PAIN IN L LEG IMPROVING AFEBRILE Objective - Vital Signs/Intake and Output Vital Signs (last 24 hours): Temp Pulse Resp BP Pulse Ox 98.2 F 64 20 130/83 100 06/07/16 08:08 06/07/16 08:08 06/07/16 08:08 06/07/16 08:08 06/07/16 08:08 - Medications Medications: Current Medications Acetaminophen (Tylenol 325mg Tab) 650 mg PO Q4 PRN PRN Reason: Pain, Mild (1-3) Acetaminophen (Tylenol 325mg Tab) 650 mg PO Q4 PRN PRN Reason: Fever >100.4 F Atorvastatin Calcium (Lipitor) 10 mg PO HS [facility] Last Admin: 06/06/16 21:11 Dose: 10 mg Enoxaparin Sodium (Lovenox) 40 mg SC DAILY [facility] PRN Reason: Protocol Last Admin: 06/06/16 08:56 Dose: 40 mg Ampicillin Sodium/Sulbactam (Sodium 3 gm/ Sodium Chloride) 100 mls @ 100 mls/ hr IVPB Q6 [facility] Last Admin: 06/07/16 04:23 Dose: 100 mls/hr Ketorolac Tromethamine (Toradol) 10 mg PO Q6 PRN PRN Reason: Pain, moderate (4-7) Meclizine HCl (Antivert) 50 mg PO Q8 PRN PRN Reason: Other Metformin HCl (Glucophage) 500 mg PO BID [facility] Last Admin: 06/06/16 17:39 Dose: 500 mg Triamterene/HCTZ (Dyazide 25 Mg-37.5 Mg) 1 cap PO DAILY [facility] Last Admin: 06/06/16 08:56 Dose: 1 cap - Labs Labs: 06/05/16 06:30 06/05/16 06:00 - Constitutional Appears: No Acute Distress - Head Exam Head Exam: ATRAUMATIC, NORMAL INSPECTION, NORMOCEPHALIC - Eye Exam Eye Exam: EOMI, Normal appearance, PERRL Pupil Exam: NORMAL ACCOMODATION, PERRL - ENT Exam ENT Exam: Mucous Membranes Moist, Normal Exam - Neck Exam Neck Exam: Full ROM, Normal Inspection. absent: Lymphadenopathy - Respiratory Exam Respiratory Exam: Clear to Ausculation Bilateral, NORMAL BREATHING PATTERN - Cardiovascular Exam Cardiovascular Exam: REGULAR RHYTHM, +S1, +S2. absent: Murmur - GI/Abdominal Exam GI & Abdominal Exam: Soft, Normal Bowel Sounds. absent: Tenderness - Rectal Exam Rectal Exam: NORMAL INSPECTION - Extremities Exam Extremities Exam: Full ROM, Normal Capillary Refill, Normal Inspection, Pedal Edema. absent: Joint Swelling - Back Exam Back Exam: NORMAL INSPECTION - Neurological Exam Neurological Exam: Alert, Awake, CN II-XII Intact, Normal Gait, Oriented x3 - Psychiatric Exam Psychiatric exam: Normal Affect, Normal Mood - Skin Skin Exam: Dry, Intact, Normal Color, Warm Assessment and Plan - Assessment and Plan (Free Text) Assessment: CELLULITIS OF LEG CHRONIC LYMPHEDEMA OF LEGS DM HTN Plan: CONTINUE PRESENT RX
[2016-06-07] MEDS: Enoxaparin 40 mg Syringe SC SCH (08:39)
[2016-06-07] MEDS: hydroCHLOROthiazide-Triamterene 25 mg-37.5 mg Cap UD PO SCH (08:39)
[2016-06-08] MEDS: Ampicillin/Sulbactam 3 GM in Sodium Chloride 0.9% 100 ML IVPB SCH ×4 (04:53→21:48)
--- NOTE | 2016-06-08 08:40 | CP.PCM.PN ---
Subjective - Date & Time of Evaluation Date of Evaluation: 06/08/16 Time of Evaluation: 08:39 - Subjective Subjective: NO COMPLAINTS CELLULITIS OF L LEG IMPROVING Objective - Vital Signs/Intake and Output Vital Signs (last 24 hours): Temp Pulse Resp BP Pulse Ox 98.2 F 66 18 114/79 99 06/07/16 22:00 06/07/16 22:00 06/07/16 22:00 06/07/16 22:00 06/07/16 22:00 - Medications Medications: Current Medications Acetaminophen (Tylenol 325mg Tab) 650 mg PO Q4 PRN PRN Reason: Pain, Mild (1-3) Acetaminophen (Tylenol 325mg Tab) 650 mg PO Q4 PRN PRN Reason: Fever >100.4 F Atorvastatin Calcium (Lipitor) 10 mg PO HS [facility] Last Admin: 06/07/16 22:11 Dose: 10 mg Enoxaparin Sodium (Lovenox) 40 mg SC DAILY [facility] PRN Reason: Protocol Last Admin: 06/07/16 08:39 Dose: 40 mg Ampicillin Sodium/Sulbactam (Sodium 3 gm/ Sodium Chloride) 100 mls @ 100 mls/ hr IVPB Q6 [facility] Last Admin: 06/08/16 04:53 Dose: 100 mls/hr Ketorolac Tromethamine (Toradol) 10 mg PO Q6 PRN PRN Reason: Pain, moderate (4-7) Meclizine HCl (Antivert) 50 mg PO Q8 PRN PRN Reason: Other Metformin HCl (Glucophage) 500 mg PO BID [facility] Last Admin: 06/07/16 17:34 Dose: 500 mg Triamterene/HCTZ (Dyazide 25 Mg-37.5 Mg) 1 cap PO DAILY [facility] Last Admin: 06/07/16 08:39 Dose: 1 cap - Labs Labs: 06/05/16 06:30 06/05/16 06:00 - Constitutional Appears: No Acute Distress - Head Exam Head Exam: ATRAUMATIC, NORMAL INSPECTION, NORMOCEPHALIC - Eye Exam Eye Exam: EOMI, Normal appearance, PERRL Pupil Exam: NORMAL ACCOMODATION, PERRL - ENT Exam ENT Exam: Mucous Membranes Moist, Normal Exam - Neck Exam Neck Exam: Full ROM, Normal Inspection. absent: Lymphadenopathy - Respiratory Exam Respiratory Exam: Clear to Ausculation Bilateral, NORMAL BREATHING PATTERN - Cardiovascular Exam Cardiovascular Exam: REGULAR RHYTHM, +S1, +S2. absent: Murmur - GI/Abdominal Exam GI & Abdominal Exam: Soft, Normal Bowel Sounds. absent: Tenderness - Rectal Exam Rectal Exam: NORMAL INSPECTION - Extremities Exam Extremities Exam: Full ROM, Normal Capillary Refill, Normal Inspection, Pedal Edema. absent: Joint Swelling - Back Exam Back Exam: NORMAL INSPECTION - Neurological Exam Neurological Exam: Alert, Awake, CN II-XII Intact, Normal Gait, Oriented x3 - Psychiatric Exam Psychiatric exam: Normal Affect, Normal Mood - Skin Skin Exam: Dry, Intact, Normal Color, Warm Assessment and Plan - Assessment and Plan (Free Text) Assessment: CELLULITIS OF LEG SEPSIS HTN DM CHRONIC LYMPHEDEMA OF LEGS Plan: CONTINUE ANTIBIOTIC RX
[2016-06-08] MEDS: Enoxaparin 40 mg Syringe SC SCH (08:42)
[2016-06-08] MEDS: hydroCHLOROthiazide-Triamterene 25 mg-37.5 mg Cap UD PO SCH (08:43)
[2016-06-08 11:05] VITALS: RESP 20
[2016-06-09] MEDS: Ampicillin/Sulbactam 3 GM in Sodium Chloride 0.9% 100 ML IVPB SCH ×4 (04:32→22:20)
[2016-06-09] MEDS: Enoxaparin 40 mg Syringe SC SCH (08:54)
[2016-06-09] MEDS: hydroCHLOROthiazide-Triamterene 25 mg-37.5 mg Cap UD PO SCH (08:54)
--- NOTE | 2016-06-09 09:45 | CP.PCM.PN ---
Subjective - Date & Time of Evaluation Date of Evaluation: 06/09/16 Time of Evaluation: 09:45 - Subjective Subjective: CELLULITIS OF L LEG IMPROVED Objective - Vital Signs/Intake and Output Vital Signs (last 24 hours): Temp Pulse Resp BP Pulse Ox 98.2 F 81 20 127/86 100 06/09/16 09:18 06/09/16 09:18 06/09/16 09:18 06/09/16 09:18 06/09/16 09:18 - Medications Medications: Current Medications Acetaminophen (Tylenol 325mg Tab) 650 mg PO Q4 PRN PRN Reason: Pain, Mild (1-3) Acetaminophen (Tylenol 325mg Tab) 650 mg PO Q4 PRN PRN Reason: Fever >100.4 F Atorvastatin Calcium (Lipitor) 10 mg PO HS [facility] Last Admin: 06/08/16 21:48 Dose: 10 mg Ampicillin Sodium/Sulbactam (Sodium 3 gm/ Sodium Chloride) 100 mls @ 100 mls/ hr IVPB Q6 [facility] Last Admin: 06/09/16 04:32 Dose: 100 mls/hr Ketorolac Tromethamine (Toradol) 10 mg PO Q6 PRN PRN Reason: Pain, moderate (4-7) Meclizine HCl (Antivert) 50 mg PO Q8 PRN PRN Reason: Other Metformin HCl (Glucophage) 500 mg PO BID [facility] Last Admin: 06/09/16 08:54 Dose: 500 mg Triamterene/HCTZ (Dyazide 25 Mg-37.5 Mg) 1 cap PO DAILY [facility] Last Admin: 06/09/16 08:54 Dose: 1 cap - Labs Labs: 06/05/16 06:30 06/05/16 06:00 - Constitutional Appears: No Acute Distress - Head Exam Head Exam: ATRAUMATIC, NORMAL INSPECTION, NORMOCEPHALIC - Eye Exam Eye Exam: EOMI, Normal appearance, PERRL Pupil Exam: NORMAL ACCOMODATION, PERRL - ENT Exam ENT Exam: Mucous Membranes Moist, Normal Exam - Neck Exam Neck Exam: Full ROM, Normal Inspection. absent: Lymphadenopathy - Respiratory Exam Respiratory Exam: Clear to Ausculation Bilateral, NORMAL BREATHING PATTERN - Cardiovascular Exam Cardiovascular Exam: REGULAR RHYTHM, +S1, +S2. absent: Murmur - GI/Abdominal Exam GI & Abdominal Exam: Soft, Normal Bowel Sounds. absent: Tenderness - Rectal Exam Rectal Exam: NORMAL INSPECTION - Extremities Exam Extremities Exam: Full ROM, Normal Capillary Refill, Normal Inspection, Pedal Edema. absent: Joint Swelling - Back Exam Back Exam: NORMAL INSPECTION - Neurological Exam Neurological Exam: Alert, Awake, CN II-XII Intact, Normal Gait, Oriented x3 - Psychiatric Exam Psychiatric exam: Normal Affect, Normal Mood - Skin Skin Exam: Dry, Intact, Normal Color, Warm Assessment and Plan - Assessment and Plan (Free Text) Assessment: CELLULITIS OF L LEG IMPROVED CHRONIC LYMPHEDEMA OF LEGS SEPSIS Plan: CONTINUE ANTIBIOTIC RX REPEAT LABS
[2016-06-10] MEDS: Ampicillin/Sulbactam 3 GM in Sodium Chloride 0.9% 100 ML IVPB SCH ×4 (04:39→21:10)
[2016-06-10 07:11] LABS: BASO % 0.6 % (0.0-2.0); EOS % 0.7 % (0.0-4.0); LYMPH # 1.4 K/uL (1.0-4.3); LYMPH % 21.6 % (20.0-40.0); MEAN CORPUSCULAR HEMOGLOBIN 29.8 pg (27.0-31.0); MEAN CORPUSCULAR HGB CONC 34.7 g/dL (33.0-37.0); MEAN PLATELET VOLUME 7.1 fl (7.2-11.7); MONO # 0.5 K/uL (0.0-0.8); MONO % 8.1 % (0.0-10.0); NEUT # 4.4 K/uL (1.8-7.0); NRBC % 0.1 % (0.0-0.0); RED CELL DISTRIBUTION WIDTH 13.4 % (11.5-14.5); WHITE BLOOD COUNT 6.3 K/uL (4.8-10.8)
[2016-06-10 07:21] LABS: BLOOD UREA NITROGEN 16 mg/dl (9-20); CARBON DIOXIDE 29 mmol/L (22-30); CHLORIDE 96 mmol/L (98-107); GFR AFRICAN-AMERICAN > 60; GLUCOSE,RANDOM 114 mg/dL (75-110); POTASSIUM 3.7 MMOL/L (3.6-5.0); SODIUM 133 mmol/l (132-148)
[2016-06-10] MEDS: hydroCHLOROthiazide-Triamterene 25 mg-37.5 mg Cap UD PO SCH (08:55)
--- NOTE | 2016-06-10 09:37 | CP.PCM.PN ---
Subjective - Date & Time of Evaluation Date of Evaluation: 06/10/16 Time of Evaluation: 09:37 - Subjective Subjective: CELLULITIS WITH LYMPHEDEMA OF L LEG CONTINUES TO IMPROVE AFEBRILE LABS REVIEWED WILL CONTINUE IV ANTIBIOTIC THERAPY Objective - Vital Signs/Intake and Output Vital Signs (last 24 hours): Temp Pulse Resp BP Pulse Ox 97.7 F 78 20 118/79 100 06/10/16 08:18 06/10/16 08:18 06/10/16 08:18 06/10/16 08:18 06/10/16 08:18 - Medications Medications: Current Medications Acetaminophen (Tylenol 325mg Tab) 650 mg PO Q4 PRN PRN Reason: Pain, Mild (1-3) Acetaminophen (Tylenol 325mg Tab) 650 mg PO Q4 PRN PRN Reason: Fever >100.4 F Atorvastatin Calcium (Lipitor) 10 mg PO HS [facility] Last Admin: 06/09/16 22:20 Dose: 10 mg Ampicillin Sodium/Sulbactam (Sodium 3 gm/ Sodium Chloride) 100 mls @ 100 mls/ hr IVPB Q6 [facility] Last Admin: 06/10/16 09:00 Dose: 100 mls/hr Ketorolac Tromethamine (Toradol) 10 mg PO Q6 PRN PRN Reason: Pain, moderate (4-7) Meclizine HCl (Antivert) 50 mg PO Q8 PRN PRN Reason: Other Metformin HCl (Glucophage) 500 mg PO BID [facility] Last Admin: 06/10/16 08:55 Dose: 500 mg Triamterene/HCTZ (Dyazide 25 Mg-37.5 Mg) 1 cap PO DAILY [facility] Last Admin: 06/10/16 08:55 Dose: 1 cap - Labs Labs: 06/10/16 06:43 06/10/16 06:43
[2016-06-11] MEDS: Ampicillin/Sulbactam 3 GM in Sodium Chloride 0.9% 100 ML IVPB SCH ×4 (04:03→21:12)
[2016-06-11] MEDS: hydroCHLOROthiazide-Triamterene 25 mg-37.5 mg Cap UD PO SCH (08:33)
--- NOTE | 2016-06-11 12:43 | CP.PCM.PN ---
Subjective - Date & Time of Evaluation Date of Evaluation: 06/11/16 Time of Evaluation: 12:45 - Subjective Subjective: CONTINUES TO IMPROVE CLINICALLY CELLULITIS AND LYMPHEDEMA OF LEGS IMPROVED Objective - Vital Signs/Intake and Output Vital Signs (last 24 hours): Temp Pulse Resp BP Pulse Ox 98.2 F 74 20 122/76 100 06/11/16 08:23 06/11/16 08:23 06/11/16 08:23 06/11/16 08:23 06/11/16 08:23 - Medications Medications: Current Medications Acetaminophen (Tylenol 325mg Tab) 650 mg PO Q4 PRN PRN Reason: Pain, Mild (1-3) Acetaminophen (Tylenol 325mg Tab) 650 mg PO Q4 PRN PRN Reason: Fever >100.4 F Atorvastatin Calcium (Lipitor) 10 mg PO HS [facility] Last Admin: 06/10/16 21:18 Dose: 10 mg Ampicillin Sodium/Sulbactam (Sodium 3 gm/ Sodium Chloride) 100 mls @ 100 mls/ hr IVPB Q6 [facility] Last Admin: 06/11/16 09:50 Dose: 100 mls/hr Meclizine HCl (Antivert) 50 mg PO Q8 PRN PRN Reason: Other Metformin HCl (Glucophage) 500 mg PO BID [facility] Last Admin: 06/11/16 08:33 Dose: 500 mg Triamterene/HCTZ (Dyazide 25 Mg-37.5 Mg) 1 cap PO DAILY [facility] Last Admin: 06/11/16 08:33 Dose: 1 cap - Labs Labs: 06/10/16 06:43 06/10/16 06:43 - Constitutional Appears: No Acute Distress - Head Exam Head Exam: ATRAUMATIC, NORMAL INSPECTION, NORMOCEPHALIC - Eye Exam Eye Exam: EOMI, Normal appearance, PERRL Pupil Exam: NORMAL ACCOMODATION, PERRL - ENT Exam ENT Exam: Mucous Membranes Moist, Normal Exam - Neck Exam Neck Exam: Full ROM, Normal Inspection. absent: Lymphadenopathy - Respiratory Exam Respiratory Exam: Clear to Ausculation Bilateral, NORMAL BREATHING PATTERN - Cardiovascular Exam Cardiovascular Exam: REGULAR RHYTHM, +S1, +S2. absent: Murmur - GI/Abdominal Exam GI & Abdominal Exam: Soft, Normal Bowel Sounds. absent: Tenderness - Rectal Exam Rectal Exam: NORMAL INSPECTION - Extremities Exam Extremities Exam: Full ROM, Normal Capillary Refill, Normal Inspection, Pedal Edema. absent: Joint Swelling - Back Exam Back Exam: NORMAL INSPECTION - Neurological Exam Neurological Exam: Alert, Awake, CN II-XII Intact, Normal Gait, Oriented x3 - Psychiatric Exam Psychiatric exam: Normal Affect, Normal Mood - Skin Skin Exam: Dry, Intact, Normal Color, Warm Assessment and Plan - Assessment and Plan (Free Text) Assessment: CELLULITIS AND LYMPHEDEMA OF LEGS IMPROVED Plan: CONTINUE ANTIBIOTIC RX D/C ON 06/15 AFTER COMPLETION OF ANTIBIOTIC RX
[2016-06-12] MEDS: Ampicillin/Sulbactam 3 GM in Sodium Chloride 0.9% 100 ML IVPB SCH ×4 (04:19→21:15)
[2016-06-12] MEDS: hydroCHLOROthiazide-Triamterene 25 mg-37.5 mg Cap UD PO SCH (09:19)
--- NOTE | 2016-06-12 12:04 | CP.PCM.PN ---
Subjective - Date & Time of Evaluation Date of Evaluation: 06/12/16 Time of Evaluation: 12:08 - Subjective Subjective: CONTINUES TO IMPROVE CLINICALLY AFEBRILE Objective - Vital Signs/Intake and Output Vital Signs (last 24 hours): Temp Pulse Resp BP Pulse Ox 97.3 F L 68 20 119/82 96 06/12/16 08:21 06/12/16 08:21 06/12/16 08:21 06/12/16 08:21 06/12/16 08:21 - Medications Medications: Current Medications Acetaminophen (Tylenol 325mg Tab) 650 mg PO Q4 PRN PRN Reason: Pain, Mild (1-3) Acetaminophen (Tylenol 325mg Tab) 650 mg PO Q4 PRN PRN Reason: Fever >100.4 F Atorvastatin Calcium (Lipitor) 10 mg PO HS [facility] Last Admin: 06/11/16 21:13 Dose: 10 mg Ampicillin Sodium/Sulbactam (Sodium 3 gm/ Sodium Chloride) 100 mls @ 100 mls/ hr IVPB Q6 [facility] Last Admin: 06/12/16 09:19 Dose: 100 mls/hr Meclizine HCl (Antivert) 50 mg PO Q8 PRN PRN Reason: Other Metformin HCl (Glucophage) 500 mg PO BID [facility] Last Admin: 06/12/16 09:19 Dose: 500 mg Triamterene/HCTZ (Dyazide 25 Mg-37.5 Mg) 1 cap PO DAILY [facility] Last Admin: 06/12/16 09:19 Dose: 1 cap - Labs Labs: 06/10/16 06:43 06/10/16 06:43 - Constitutional Appears: No Acute Distress - Head Exam Head Exam: ATRAUMATIC, NORMAL INSPECTION, NORMOCEPHALIC - Eye Exam Eye Exam: EOMI, Normal appearance, PERRL Pupil Exam: NORMAL ACCOMODATION, PERRL - ENT Exam ENT Exam: Mucous Membranes Moist, Normal Exam - Neck Exam Neck Exam: Full ROM, Normal Inspection. absent: Lymphadenopathy - Respiratory Exam Respiratory Exam: Clear to Ausculation Bilateral, NORMAL BREATHING PATTERN - Cardiovascular Exam Cardiovascular Exam: REGULAR RHYTHM, +S1, +S2. absent: Murmur - GI/Abdominal Exam GI & Abdominal Exam: Soft, Normal Bowel Sounds. absent: Tenderness - Rectal Exam Rectal Exam: NORMAL INSPECTION - Extremities Exam Extremities Exam: Full ROM, Normal Capillary Refill, Normal Inspection, Pedal Edema. absent: Joint Swelling Additional comments: CELLULITIS OF L LEG IMPROVED - Back Exam Back Exam: NORMAL INSPECTION - Neurological Exam Neurological Exam: Alert, Awake, CN II-XII Intact, Normal Gait, Oriented x3 - Psychiatric Exam Psychiatric exam: Normal Affect, Normal Mood - Skin Skin Exam: Dry, Intact, Normal Color, Warm Assessment and Plan - Assessment and Plan (Free Text) Assessment: CELLULITIS OF L LEG WITH LYMPHEDEMA Plan: CONTINUE PRESENT RX
[2016-06-13] MEDS: Ampicillin/Sulbactam 3 GM in Sodium Chloride 0.9% 100 ML IVPB SCH ×4 (04:48→21:35)
[2016-06-13] MEDS: hydroCHLOROthiazide-Triamterene 25 mg-37.5 mg Cap UD PO SCH (08:34)
--- NOTE | 2016-06-13 09:48 | CP.PCM.PN ---
Subjective - Date & Time of Evaluation Date of Evaluation: 06/13/16 Time of Evaluation: 09:48 - Subjective Subjective: CELLULITIS AND EDEMA OF LEGS IMPROVED DENIES PAIN Objective - Vital Signs/Intake and Output Vital Signs (last 24 hours): Temp Pulse Resp BP Pulse Ox 98.2 F 79 20 115/78 95 06/12/16 19:29 06/12/16 19:29 06/12/16 19:29 06/12/16 19:29 06/12/16 19:29 - Medications Medications: Current Medications Acetaminophen (Tylenol 325mg Tab) 650 mg PO Q4 PRN PRN Reason: Pain, Mild (1-3) Acetaminophen (Tylenol 325mg Tab) 650 mg PO Q4 PRN PRN Reason: Fever >100.4 F Atorvastatin Calcium (Lipitor) 10 mg PO HS [facility] Last Admin: 06/12/16 21:15 Dose: 10 mg Ampicillin Sodium/Sulbactam (Sodium 3 gm/ Sodium Chloride) 100 mls @ 100 mls/ hr IVPB Q6 [facility] Last Admin: 06/13/16 09:34 Dose: 100 mls/hr Meclizine HCl (Antivert) 50 mg PO Q8 PRN PRN Reason: Other Metformin HCl (Glucophage) 500 mg PO BID [facility] Last Admin: 06/13/16 08:34 Dose: 500 mg Triamterene/HCTZ (Dyazide 25 Mg-37.5 Mg) 1 cap PO DAILY [facility] Last Admin: 06/13/16 08:34 Dose: 1 cap - Labs Labs: 06/10/16 06:43 06/10/16 06:43 - Constitutional Appears: No Acute Distress - Head Exam Head Exam: ATRAUMATIC, NORMAL INSPECTION, NORMOCEPHALIC - Eye Exam Eye Exam: EOMI, Normal appearance, PERRL Pupil Exam: NORMAL ACCOMODATION, PERRL - ENT Exam ENT Exam: Mucous Membranes Moist, Normal Exam - Neck Exam Neck Exam: Full ROM, Normal Inspection. absent: Lymphadenopathy - Respiratory Exam Respiratory Exam: Clear to Ausculation Bilateral, NORMAL BREATHING PATTERN - Cardiovascular Exam Cardiovascular Exam: REGULAR RHYTHM, +S1, +S2. absent: Murmur - GI/Abdominal Exam GI & Abdominal Exam: Soft, Normal Bowel Sounds. absent: Tenderness - Rectal Exam Rectal Exam: NORMAL INSPECTION - Extremities Exam Extremities Exam: Full ROM, Normal Capillary Refill, Normal Inspection, Pedal Edema. absent: Joint Swelling Additional comments: CHRONIC LYMPHEDEMA OF LEGS - Back Exam Back Exam: NORMAL INSPECTION - Neurological Exam Neurological Exam: Alert, Awake, CN II-XII Intact, Normal Gait, Oriented x3 - Psychiatric Exam Psychiatric exam: Normal Affect, Normal Mood - Skin Skin Exam: Dry, Intact, Normal Color, Warm Assessment and Plan - Assessment and Plan (Free Text) Assessment: CELLULITIS OF L LEG-IMPROVED SEPSIS RESOLVED CHRONIC LYMPHEDEMA OF LEGS DM TYPE 2 Plan: CONTINUE IV ANTIBIOTIC RX D/C ON 06/15/16
[2016-06-14] MEDS: Ampicillin/Sulbactam 3 GM in Sodium Chloride 0.9% 100 ML IVPB SCH ×4 (04:58→22:25)
[2016-06-14] MEDS: hydroCHLOROthiazide-Triamterene 25 mg-37.5 mg Cap UD PO SCH (08:35)
--- NOTE | 2016-06-14 09:23 | CP.PCM.PN ---
Subjective - Date & Time of Evaluation Date of Evaluation: 06/14/16 Time of Evaluation: 09:23 - Subjective Subjective: NO NEW CLINICAL FINDINGS AFEBRILE CELLULITIS OF L LEG IMPROVED WILL CONTINUE 1 MORE DAY OF IV ANTIBIOTIC RX D/C IN AM IF STABLE Objective - Vital Signs/Intake and Output Vital Signs (last 24 hours): Temp Pulse Resp BP Pulse Ox 97.9 F 58 L 20 107/69 99 06/14/16 08:05 06/14/16 08:05 06/14/16 08:05 06/14/16 08:05 06/14/16 08:05 - Medications Medications: Current Medications Acetaminophen (Tylenol 325mg Tab) 650 mg PO Q4 PRN PRN Reason: Pain, Mild (1-3) Acetaminophen (Tylenol 325mg Tab) 650 mg PO Q4 PRN PRN Reason: Fever >100.4 F Atorvastatin Calcium (Lipitor) 10 mg PO HS [facility] Last Admin: 06/13/16 21:35 Dose: 10 mg Ampicillin Sodium/Sulbactam (Sodium 3 gm/ Sodium Chloride) 100 mls @ 100 mls/ hr IVPB Q6 [facility] Last Admin: 06/14/16 04:58 Dose: 100 mls/hr Meclizine HCl (Antivert) 50 mg PO Q8 PRN PRN Reason: Other Metformin HCl (Glucophage) 500 mg PO BID [facility] Last Admin: 06/14/16 08:35 Dose: 500 mg Triamterene/HCTZ (Dyazide 25 Mg-37.5 Mg) 1 cap PO DAILY [facility] Last Admin: 06/14/16 08:35 Dose: 1 cap - Labs Labs: 06/10/16 06:43 06/10/16 06:43
[2016-06-15] MEDS: Ampicillin/Sulbactam 3 GM in Sodium Chloride 0.9% 100 ML IVPB SCH ×2 (04:49→09:45)
[2016-06-15] MEDS: hydroCHLOROthiazide-Triamterene 25 mg-37.5 mg Cap UD PO SCH (08:20)
--- NOTE | 2016-06-15 08:25 | CP.PCM.DIS ---
Provider - Provider Date of Admission: 06/05/16 17:35 Attending physician: Edu Buckner MD Primary care physician: Herbert Vallecillo MD Time Spent in preparation of Discharge (in minutes): 32 Diagnosis - Discharge Diagnosis (1) Cellulitis and abscess of foot Status: Acute (2) Chronic acquired lymphedema Status: Acute (3) Diabetes 1.5, managed as type 2 Status: Acute (4) Hypertension Status: Acute (5) Sepsis Status: Acute Hospital Course - Lab Results Lab Results: Micro Results 06/08/16 05:40 Blood-Venous Blood Culture - Final NO GROWTH AFTER 5 DAYS 06/08/16 05:40 Blood-Venous Gram Stain - Final 06/08/16 06:00 Blood-Venous Blood Culture - Final NO GROWTH AFTER 5 DAYS 06/08/16 06:00 Blood-Venous Gram Stain - Final Most Recent Lab Values WBC 6.3 K/uL (4.8-10.8) 06/10/16 06:43 RBC 4.19 Mil/uL (4.40-5.90) L 06/10/16 06:43 Hgb 12.5 g/dL (12.0-18.0) 06/10/16 06:43 Hct 36.0 % (35.0-51.0) 06/10/16 06:43 MCV 86.0 fl (80.0-94.0) 06/10/16 06:43 MCH 29.8 pg (27.0-31.0) 06/10/16 06:43 MCHC 34.7 g/dL (33.0-37.0) 06/10/16 06:43 RDW 13.4 % (11.5-14.5) 06/10/16 06:43 Plt Count 361 K/uL (130-400) D 06/10/16 06:43 MPV 7.1 fl (7.2-11.7) L 06/10/16 06:43 Neut % (Auto) 69.0 % (50.0-75.0) 06/10/16 06:43 Lymph % (Auto) 21.6 % (20.0-40.0) 06/10/16 06:43 Wallace % (Auto) 8.1 % (0.0-10.0) 06/10/16 06:43 Eos % (Auto) 0.7 % (0.0-4.0) 06/10/16 06:43 Baso % (Auto) 0.6 % (0.0-2.0) 06/10/16 06:43 Neut # 4.4 K/uL (1.8-7.0) 06/10/16 06:43 Lymph # 1.4 K/uL (1.0-4.3) 06/10/16 06:43 Wallace # 0.5 K/uL (0.0-0.8) 06/10/16 06:43 Eos # 0.0 K/uL (0.0-0.7) 06/10/16 06:43 Baso # 0.0 K/uL (0.0-0.2) 06/10/16 06:43 Sodium 133 mmol/l (132-148) 06/10/16 06:43 Potassium 3.7 MMOL/L (3.6-5.0) 06/10/16 06:43 Chloride 96 mmol/L (98-107) L 06/10/16 06:43 Carbon Dioxide 29 mmol/L (22-30) 06/10/16 06:43 Anion Gap 12 (10-20) 06/10/16 06:43 BUN 16 mg/dl (9-20) 06/10/16 06:43 Creatinine 1.1 mg/dL (0.8-1.5) 06/10/16 06:43 Est GFR ( Amer) > 60 06/10/16 06:43 Est GFR (Non-Af Amer) > 60 06/10/16 06:43 POC Glucose (mg/dL) 101 mg/dL (65-110) 06/15/16 05:56 Random Glucose 114 mg/dL (75-110) H 06/10/16 06:43 Calcium 9.0 mg/dL (8.4-10.2) 06/10/16 06:43 Total Bilirubin 0.6 mg/dl (0.2-1.3) 06/05/16 06:00 AST 44 U/L (17-59) 06/05/16 06:00 ALT 44 U/L (21-72) 06/05/16 06:00 Alkaline Phosphatase 123 U/L (38-126) 06/05/16 06:00 Total Protein 7.9 G/DL (6.3-8.2) 06/05/16 06:00 Albumin 3.6 g/dL (3.5-5.0) 06/05/16 06:00 Globulin 4.2 gm/dL (2.2-3.9) H 06/05/16 06:00 Albumin/Globulin Ratio 0.9 (1.0-2.1) L 06/05/16 06:00 - Hospital Course Hospital Course: CELLULITIS OF LEFT LEG RESOLVED NO APPARENT DISTRESS LABS REVIEWED Discharge Exam - Head Exam Head Exam: ATRAUMATIC, NORMAL INSPECTION, NORMOCEPHALIC - Eye Exam Eye Exam: EOMI, Normal appearance, PERRL Pupil Exam: NORMAL ACCOMODATION, PERRL - GI/Abdominal Exam GI & Abdominal Exam: Normal Bowel Sounds - Rectal Exam Rectal Exam: NORMAL INSPECTION - Extremities Exam Additional comments: CHRONIC LYMPHEDEMA OF LEGS - Neurological Exam Neurological exam: Alert, CN II-XII Intact, Normal Gait, Oriented x3, Reflexes Normal - Psychiatric Exam Psychiatric exam: Normal Affect, Normal Mood - Skin Skin Exam: Dry, Intact, Normal Color, Warm Discharge Plan - Follow Up Plan Condition: GOOD Disposition: HOME/ ROUTINE Patient education suggested?: Yes Additional Instructions: DISCHARGE HOME TODAY NO FURTHER ANTIBIOTIC RX Referrals: Herbert Vallecillo MD [Primary Care Provider] -
[2016-06-15 08:42] VITALS: BP 102/70; PULSE 78; TEMP 98.1; O2SAT 100
== END 2016-06-15 12:45 | disposition home or self-care (01) | DRG 872 ==
LOC: H.TCU 17:35
PROVIDERS: ADMIT Internal Medicine Pulmonary Disease; ATTEND Internal Medicine Pulmonary Disease
PROC: F08Z4FZ Home Management Treatment using Assistive, Adaptive, Supportive or Protective Equipment (ICD-10-PCS; 2016-06-04)
PROC: 3E03329 Introduction of Other Anti-infective into Peripheral Vein, Percutaneous Approach (ICD-10-PCS; 2016-06-05)
PROC: F07L6ZZ Therapeutic Exercise Treatment of Musculoskeletal System - Lower Back / Lower Extremity (ICD-10-PCS; principal; 2016-06-06)
DX: A41.9 Sepsis, unspecified organism (principal); I10 Essential (primary) hypertension; L03.115 Cellulitis of right lower limb; L03.116 Cellulitis of left lower limb; E11.9 Type 2 diabetes mellitus without complications; I89.0 Lymphedema, not elsewhere classified